=== PATIENT | female | born 1995 | race Caucasian/White ===

== ENCOUNTER → 2024-01-24 10:03 | Outpatient (CLI) | payer OTHER, SELFPAY ==
[2024-01-24 16:24] LABS: Urine N gonorrhoeae NOT DETECTED
[2024-01-24 16:43] LABS: Urine Chlamydia NOT DETECTED
== END ==
PROVIDERS: PCP Physician Assistant Medical; Visit Provider Student in an Organized Health Care Education/Training Program
DX: Z34.80 Encounter for supervision of other normal pregnancy, unspecified trimester (principal)
CPT/HCPCS: 87491; 87591

== ENCOUNTER → 2024-02-27 11:53 | Outpatient (CLI) | payer OTHER, SELFPAY ==
[2024-02-27 13:00] LABS: Add Manual Diff / Slide Review NO; Basophils Absolute Auto 100 /uL (0-100); Basophils Percent Auto 0.7 % (0-2); Eosinophils Absolute Auto 300 /uL (0-450); Eosinophils Percent Auto 2.8 % (2-4); Hematocrit 40.1 % (36-46); Hemoglobin 13.8 g/dL (12.0-16.0); Lymphocytes Absolute Auto 2200 /uL (1100-4500); Mean Corpuscular HGB Conc 34.5 % (30-36); Mean Corpuscular Hemoglobin 29.9 PG (26-34); Mean Corpuscular Volume 86.7 fL (80-100); Monocytes Absolute Auto 800 /uL (0-900); Monocytes Percent Auto 7.4 % (3-14); Neutrophils Absolute Auto 7500 /uL (1500-7000); Neutrophils Percent Auto 69.1 % (50-75); Platelet Count 289 X10^3/uL (150-400); Red Blood Cell Count 4.62 X10^6/uL (4.0-5.2); White Blood Cell Count 10.9 X10^3/uL (4.5-11.0)
[2024-02-27 13:26] LABS: Alanine Aminotransferase 13 IU/L (<35); Aspartate Aminotransferase 19 IU/L (14-36); BUN Creatinine Ratio 9.5 (6-22); Blood Urea Nitrogen 7 mg/dL (7-17); Estimated Glomerular Filt Rate > 60 mL/min (>60); Uric Acid 3.8 mg/dL (2.5-6.2)
[2024-02-27 13:36] LABS: Natera Collection Specimen Collected
[2024-02-27 15:53] LABS: Hepatitis B Surface Antigen NEGATIVE s/c (NEGATIVE); Rubella Antibody IgG 12.2 IU/mL (>15)
[2024-02-27 16:06] LABS: HIV 1 & 2 Ab/Ag 4th Gen Combo NEGATIVE (NEGATIVE); Hep C Virus Ab w/Reflex Quant NEGATIVE s/c (NEGATIVE)
[2024-02-28 06:15] LABS: RPR Screen Non Reactive (Non Reactive)
[2024-02-28 12:14] LABS: Varicella IgG Antibody Reactive (Non Reactive)
== END ==
LOC: LAB 11:55
PROVIDERS: PCP Physician Assistant Medical; Referring Provider Student in an Organized Health Care Education/Training Program; Visit Provider Student in an Organized Health Care Education/Training Program
DX: Z34.91 Encounter for supervision of normal pregnancy, unspecified, first trimester (principal); Z87.59 Personal history of other complications of pregnancy, childbirth and the puerperium; Z3A.10 10 weeks gestation of pregnancy
CPT/HCPCS: 36415; 80055; 82565; 84450; 84460; 84520; 84550; 86787; 86803; 86850; 86900; 86901; 87086; 87389

== ENCOUNTER → 2024-05-04 07:34 | Outpatient (CLI) | payer OTHER, SELFPAY ==
--- NOTE | 2024-05-04 07:35 | DI.US.S_ITS ---
PROCEDURE: US OB >= 14 WEEKS FETUS INDICATIONS: anatomy scan OUTSIDE/PRIOR DATING DATA: Last menstrual period (LMP): 12/03/2023 LMP-based estimated date of delivery (LUCIA): 09/08/2024 First dating scan (date and location): 01/24/2024 Estimated date of delivery (LUCIA) from first dating scan: 09/16/2024 The calculations are made using the working LUCIA of 09/16/2024 TECHNIQUE: Real-time scanning was performed of the fetus, with image documentation and biometric measurements. Endovaginal scanning: Not performed COMPARISON: [facility], , OB >= 14 WEEKS FETUS, 02/21/2024, 9:17. FINDINGS: General: A single living intrauterine gestation is present. Presentation: Variable Placenta: Placental position is posterior, without previa. Amniotic fluid index: 16.8 cm, normal range is 5-24 cm. Single deepest vertical pocket is 5.2 cm. heart rate: 149 beats per minute. Maternal cervical canal: Closed and measures 5.3 cm long. Normal lower limit is 2.5 cm. biometrics: Biparietal diameter: 5.0 cm, 21 weeks, 1 day Head circumference: 18.5 cm, 20 weeks, 6 days. Abdominal circumference: 17.6 cm, 22 weeks, 4 days. Femur length: 3.8 cm, 22 weeks, 0 day. Clinically estimated gestational age: 20 weeks, 5 days. Composite gestational age from present scan: 21 weeks, 5 days. Estimated weight and percentile: 476 grams, 98 percent. Anatomic survey: Neuro: Ventricles are non-dilated at less than 10 mm. Cisterna magna is normal at 3-11 mm. Cerebellum is normal in size and morphology. Nuchal skin fold: Normal at less than 6 mm between 14-21 weeks gestational age. Face: Nose and lips, facial profile are normal. Spine: No evidence for spina bifida. Heart: 4-chambered heart is present, with normal ventricular outflow tracts. Diaphragm: Diaphragm is intact. Stomach: Left-sided stomach is present. Kidneys: No hydronephrosis. Normal is less than 5 mm in 2nd trimester, less than 7 mm in 3rd trimester. Cord: 3-vessel cord is seen. Placental cord insertion is not well visualized. Bladder: Normal in size. Extremities: All 4 extremities identified. IMPRESSION: 1. Single live intrauterine gestation with fetus in variable presentation. heart rate is 149 beats per minute. Normal DANA at 16.8 cm. Cervix is closed and measures 5.3 cm in length. 2. Estimated weight is at 98 percent. 3. Placental cord insertion is not well visualized due to position. Rest of the anatomic survey is normal. We strive to produce accurate, complete, and clear reports of imaging services. To assist us in improving patient care, this report was composed using standard report templates and voice recognition software. Therefore, it may contain abnormal punctuation, insertions and/or omissions. Occasional wrong-word or sound-alike substitutions may occur. Though we review the report and make efforts to correct it, we do recommend that the report be read carefully in proper context to recognize any text inaccuracies. Dictated by: Luis Schmidt M.D. on 05/04/2024 at 12:21 Approved by: Luis Schmidt M.D. on 05/04/2024 at 12:24
== END ==
PROVIDERS: PCP Physician Assistant Medical; Referring Provider Student in an Organized Health Care Education/Training Program; Visit Provider Student in an Organized Health Care Education/Training Program
DX: Z34.82 Encounter for supervision of other normal pregnancy, second trimester (principal); Z3A.21 21 weeks gestation of pregnancy
CPT/HCPCS: 76811

== ENCOUNTER 2024-05-04 13:18 | Emergency (ER) | payer OTHER, SELFPAY ==
[2024-05-04] VITALS (7 sets, daily range): BP systolic 110–138; BP diastolic 55–67; PULSE 79–96; RESP 15–18; TEMP 37; O2SAT 97–98; BMI 34.2
--- NOTE | 2024-05-04 15:37 | ED_ITS ---
HPI - Back Pain/Injury General Chief Complaint: Back Pain/Injury Stated Complaint: 22 weeks preg; poss kidney inf Time Seen by Provider: 05/04/24 13:41 Source: patient Mode of arrival: Ambulatory Limitations: no limitations History of Present Illness HPI Narrative: Patient was a 29-year-old female. Twenty-two weeks with left-sided flank pain. States the symptoms have been present for at least a month. She has talked with her primary OB provider. She stated that his symptoms are consistent with a prior history of a kidney stone. When she talked with her primary Ob they put her on a medication. She is unsure as to what medication they put her on. She stated that she thought it was for a ?kidney infection? she was not having any vaginal bleeding. No urinary symptoms. No dysuria. No hematuria. No frequency. She states the symptoms have been persistent over the past month. No vomiting. Related Data Home Medications Medication Instructions Recorded Confirmed cetirizine 10 mg tablet (All Day 10 mg PO DAILY PRN 01/05/24 04/17/24 Allergy (cetirizine)) ferrous gluconate 324 mg (38 mg 324 mg PO DAILY 01/05/24 04/17/24 iron) tablet folic acid 400 mcg tablet 0.4 mg PO DAILY 01/05/24 04/17/24 omega 5-whc-cit-fish oil 1,000 mg 1 cap PO DAILY 01/05/24 04/17/24 (120 mg-180 mg) capsule (Fish Oil) Previous Rx's Medication Instructions Recorded ondansetron 4 mg disintegrating 4 mg PO Q8H PRN nausea and 01/24/24 tablet vomiting #10 tabs Allergies Allergy/AdvReac Type Severity Reaction Status Date / Time hydromorphone Allergy Severe Anaphylaxis Verified 04/17/24 14:05 apple Allergy Intermediate ITCHING Verified 04/17/24 14:05 banana Allergy Intermediate ITCHING Verified 04/17/24 14:05 grape Allergy Intermediate ITCHING Verified 04/17/24 14:05 biotin AdvReac Intermediate Verified 04/17/24 14:05 cyanocobalamin (vitamin B12) AdvReac Intermediate Cystic Acne Verified 04/17/24 14:05 berries Allergy Intermediate ITCHING Uncoded 04/17/24 14:05 Review of Systems Review of Systems ROS Unobtainable: All systems reviewed & are unremarkable except as noted in HPI and below Patient History Medical History Uterine scar from previous delivery affecting Wears glasses Acne (~2005) Asthma (~2005) Allergies (~1999) PTSD (post-traumatic stress disorder) (~2020) Depression (~2020) Anxiety (~2021) ADHD (~2021) Fractures (~2011) Foot pain (~2015) Chicken pox (~1997) Vertigo (~2009) Painful menstrual periods (~2006) Ovarian cyst (~2017) Kidney stones (~08/16/11) Colon polyps (~07/29/17) Exercise-induced asthma GERD (gastroesophageal reflux disease) Cystic acne History of induced hypertension Normal colonoscopy Surgical History (Updated 03/10/24 @ 21:17 by Stacy Marcial) Anesthesia History of endoscopy (~05/17/22) H/O nephrolithotomy with removal of calculi (~06/28/13) History of gastroscopy [place] teeth extracted (~2009) Hx of foot surgery (~02/05/16) H/O left knee surgery (~2011) H/O section (~05/16/19) Family History (Updated 03/10/24 @ 21:18 by Stacy Marcial) Grandmother Breast cancer Hypertension Migraine Asthma Family/Other Breast cancer Ovarian cancer Mother Asthma Migraine Brother Depression Anxiety Substance abuse Father Melanoma Grandmother Diabetes mellitus Hypertension Grandfather Heart attack Social History marital status: number of children: 1 household members: spouse and children lives independently: Yes caregiver/support person: Yes housing: house pets and animals: Yes (dog) education level: college (some college) 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[employer]) current occupational exposures/hazards: Yes (occasionally stumbles across contaminated soils) special anay needs: No travel history: recent (domestic only) seatbelt use: always water heater temp set < 120 deg: Yes working smoke detector in home: Yes fire extinguisher in home: Yes carbon monox detector in home: Yes firearms in home: Yes firearms unloaded and locked: Yes do you feel safe at home: Yes Smoking Status: Never smoker second hand exposure: No alcohol intake: former (~1 glass wine/week when not ) substance use type: does not use during the past year weight has: remained stable well-balanced diet: about half the time daily servings fruits/ve-4 caffeine: No Type(s) of exercise: aerobic and other (football) Smoking Status: Never smoker Exam Initial Vital Signs Initial Vital Signs: Vital Signs Temperature 98.6 F 05/04/24 13:20 Pulse Rate 96 H 05/04/24 13:20 Respiratory Rate 18 05/04/24 13:20 Blood Pressure 138/67 05/04/24 13:20 Pulse Oximetry 97 05/04/24 13:20 Oxygen Delivery Method Room Air 05/04/24 13:20 Resp Effort & Inspection: normal respiratory effort Cardio Rate: regular rate GI Other: Gravid abdomen Neuro General: patient alert, patient awake and moves all extremities Extrem General: normal to inspection Course Orders Ordered: ED Orders 05/04/24 15:37 US renal complete Stat 05/04/24 16:21 Basic Metabolic Panel Stat Complete Blood Count AUTO DIFF Stat Vital Signs Vital signs: Vital Signs - 8 hr 05/04/24 13:20 05/04/24 15:22 05/04/24 15:30 Temperature 98.6 F Pulse Rate 96 H 86 80 Respiratory Rate 18 Blood Pressure 138/67 Pulse Oximetry 97 98 98 Oxygen Delivery Method Room Air 05/04/24 15:30 05/04/24 16:00 05/04/24 16:00 Temperature Pulse Rate 91 H Respiratory Rate Blood Pressure 114/55 L 110/62 Pulse Oximetry 98 Oxygen Delivery Method 05/04/24 16:30 Temperature Pulse Rate 83 Respiratory Rate Blood Pressure Pulse Oximetry 98 Oxygen Delivery Method MDM - Back Pain/Injury Lab Data Attestation: I reviewed the patient's lab results. 05/04/24 16:21 05/04/24 16:21 Labs: Lab Results 05/04/24 Range/Units 16:21 WBC 13.0 H (4.5-11.0) X10^3/uL RBC 4.28 (4.0-5.2) X10^6/uL Hgb 12.7 (12.0-16.0) g/dL Hct 37.8 (36-46) % MCV 88.5 (80-100) fL MCH 29.8 (26-34) PG MCHC 33.6 (30-36) % RDW 14.0 (11.6-14.8) % Plt Count 338 (150-400) X10^3/uL Neut % (Auto) 73.2 (50-75) % Lymph % (Auto) 16.8 L (25-40) % [place] % (Auto) 7.1 (3-14) % Eos % (Auto) 2.3 (2-4) % Baso % (Auto) 0.6 (0-2) % Neut # (Auto) 9500 H (8731-8282) /uL Lymph # (Auto) 2200 (2783-7837) /uL [place] # (Auto) 900 (0-900) /uL Eos # (Auto) 300 (0-450) /uL Baso # (Auto) 100 (0-100) /uL Sodium 136 L (137-145) mmol/L Potassium 3.8 (3.4-5.1) mmol/L Chloride 109 H (98-107) mmol/L Carbon Dioxide 19 L (22-32) mmol/L BUN 9 (7-17) mg/dL Creatinine 0.69 (0.52-1.04) mg/dL Estimated GFR > 60 (>60) mL/min BUN/Creatinine Ratio 13.0 (6-22) Glucose 90 (70-100) mg/dL Calcium 9.0 (8.4-10.2) mg/dL Urine Dip Bedside Urine Glucose Negative Bedside Urine Bilirubin - Negative Bedside Urine Ketone - Negative Urine Specific [employer] 1.015 Bedside Urine Occult Blood - Negative Bedside Urine pH 6.5 Bedside Urine Protein - Negative Bedside Urine Urobilinogen - Negative Bedside Urine Nitrite - Negative Bedside Urine Leukocytes - Negative Esterase Imaging Data Renal ultrasound: Radiologist's Impression: PROCEDURE: US RENAL COMPLETE INDICATIONS: L flank pain eval for hydro TECHNIQUE: Real-time scanning was performed of the kidneys and bladder, with image documentation. COMPARISON: None. FINDINGS: Kidneys: Kidneys are normal in size. Right kidney measures 9.4 cm long; left kidney measures 10.6 cm long. Right renal cortical thickness is 1.7 cm; left renal cortical thickness is 1.9 cm. Renal cortical echotexture is normal. No hydronephrosis or nephrolithiasis. No suspicious solid mass lesions. Bladder: Pre-void bladder volume is 20 mL. Post-void residual is 0 mL. Pre- void images demonstrate no intraluminal masses or stones. On pre-void images, both ureteral jets are noted with color Doppler interrogation. (Of note, ureteral jets may not be detectable in up to 25% of cases due to insufficient differences in specific gravity between ureteral and bladder urine). Miscellaneous: No free pelvic fluid. Gravid uterus partially visualized. IMPRESSION: Normal sonographic appearance of the kidneys and bladder. No hydronephrosis. MDM Narrative Medical decision making narrative: Urinalysis today is not consistent with a UTI. Ultrasound does not show any signs of hydro and her creatinine is unremarkable. I do feel that we should hold on any advanced imaging for now because she was . Recommended that she talk with her can intake worker to discuss the indications for referral to see Urology. We discussed the use of Tylenol. She was given return precautions. She expressed understanding and agreement. Discharge Plan Departure Patient Disposition: Home Clinical Impression: Flank pain Instructions: DI for Flank Pain Activity Restrictions/Additional Instructions: Recommend that you continue to take all of your medications as directed. I do recommend that you talk with your primary can intake worker to discuss the indications for referral to see Urology. Return to the emergency department for fevers or any other worsening symptoms. Prescriptions: No Action ondansetron 4 mg tablet,disintegrating 4 mg PO Q8H PRN (Reason: nausea and vomiting) Qty: 10 1RF omega 7-tkm-vft-fish oil [Fish Oil] 1,000 mg (120 mg-180 mg) capsule 1 cap PO DAILY folic acid 400 mcg tablet 0.4 mg PO DAILY ferrous gluconate 324 mg (38 mg iron) tablet 324 mg PO DAILY cetirizine [All Day Allergy (cetirizine)] 10 mg tablet 10 mg PO DAILY PRN Referrals: Idania West PA-C [Primary Care Provider] - Stand Alone Forms: Patient Portal/API/Survey
[2024-05-04 16:29] LABS: Add Manual Diff / Slide Review NO; Basophils Absolute Auto 100 /uL (0-100); Basophils Percent Auto 0.6 % (0-2); Eosinophils Absolute Auto 300 /uL (0-450); Eosinophils Percent Auto 2.3 % (2-4); Hematocrit 37.8 % (36-46); Hemoglobin 12.7 g/dL (12.0-16.0); Lymphocytes Absolute Auto 2200 /uL (1100-4500); Lymphocytes Percent Auto 16.8 % (25-40); Mean Corpuscular HGB Conc 33.6 % (30-36); Mean Corpuscular Hemoglobin 29.8 PG (26-34); Mean Corpuscular Volume 88.5 fL (80-100); Monocytes Absolute Auto 900 /uL (0-900); Monocytes Percent Auto 7.1 % (3-14); Neutrophils Absolute Auto 9500 /uL (1500-7000); Neutrophils Percent Auto 73.2 % (50-75); Platelet Count 338 X10^3/uL (150-400); Red Blood Cell Count 4.28 X10^6/uL (4.0-5.2)
[2024-05-04 16:39] LABS: Blood Urea Nitrogen 9 mg/dL (7-17); Carbon Dioxide 19 mmol/L (22-32); Chloride 109 mmol/L (98-107); Estimated Glomerular Filt Rate > 60 mL/min (>60); Glucose 90 mg/dL (70-100); HEMOLYSIS < 15 (0-50); Potassium 3.8 mmol/L (3.4-5.1); Sodium 136 mmol/L (137-145)
== END 2024-05-04 17:14 | disposition home or self-care (01) ==
PROVIDERS: Emergency Provider Emergency Medicine; PCP Physician Assistant Medical
DX: O26.892 Other specified pregnancy related conditions, second trimester (principal); R10.9 Unspecified abdominal pain; Z3A.22 22 weeks gestation of pregnancy
CPT/HCPCS: 76770; 80048; 81003; 85025; 99282; 99284

== ENCOUNTER 2024-05-19 17:22 | Observation (INO) | payer OTHER, SELFPAY ==
[2024-05-19 17:52] LABS: Appearance Urine UA CLEAR; Bilirubin Urine UA NEGATIVE (NEGATIVE); Color Urine UA YELLOW; Glucose Urine UA NEGATIVE (Negative); Ketones Urine UA NEGATIVE (NEGATIVE); Leukocyte Esterase Urine UA NEGATIVE (NEGATIVE); Nitrite Urine UA NEGATIVE (Negative); Occult Blood Urine UA 2+ (Negative); Protein Urine UA NEGATIVE (Negative); Urobilinogen Urine UA 0.2 E.U./dL (0.2)
[2024-05-19 18:11] LABS: Bacteria Urine Few (2-10); RBC Urine 5-10/HPF (0-5/HPF); Urine Volume 10mL (spun); WBC Urine 0-1/HPF (0-5/HPF)
[2024-05-19 18:12] LABS: Culture Indicated Urine Cult Not Indicated; Squamous Epithelial Cell Urine 1-5 /HPF (0-5/HPF)
--- NOTE | 2024-05-19 18:23 | PM.OBTRLD ---
Visit Information Visit Information Date of evaluation: 05/19/24 Primary OB Provider: Hanna Gil On-call OB Provider: Elva Jaime Reason for Evaluation: Yes pre-term labor Comments/Additional reasons for admission: 29-year-old 3 para 1 EDC 09/16/2024 at 22 weeks 6 days here for evaluation for pelvic cramping. Patient had a bad fall 3 days ago. She hit her abdomen falling against rocks and a retaining wall. She was admitted to [facility] for 7 hours and monitored. She had a CT scan because they were concerned she had intra-abdominal bleeding but was negative. She had no vaginal bleeding. She has been at rest and pushing fluids since. Patient began having menstrual like cramps in her lower abdomen all day. No leakage of fluid. No vaginal bleeding. Good movement. Patient came in for evaluation. [facility] Medical History Uterine scar from previous delivery affecting Wears glasses Acne (~2005) Asthma (~2005) Allergies (~1999) PTSD (post-traumatic stress disorder) (~2020) Depression (~2020) Anxiety (~2021) ADHD (~2021) Fractures (~2011) Foot pain (~2015) Chicken pox (~1997) Vertigo (~2009) Painful menstrual periods (~2006) Ovarian cyst (~2017) Kidney stones (~08/16/11) Colon polyps (~07/29/17) Exercise-induced asthma GERD (gastroesophageal reflux disease) Cystic acne History of induced hypertension Normal colonoscopy Surgical History (Updated 03/10/24 @ 21:17 by Stacy Marcial) Anesthesia History of endoscopy (~05/17/22) H/O nephrolithotomy with removal of calculi (~06/28/13) History of gastroscopy [place] teeth extracted (~2009) Hx of foot surgery (~02/05/16) H/O left knee surgery (~2011) H/O section (~05/16/19) Family History (Updated 03/10/24 @ 21:18 by Stacy Marcial) Grandmother Breast cancer Hypertension Migraine Asthma Family/Other Breast cancer Ovarian cancer Mother Asthma Migraine Brother Depression Anxiety Substance abuse Father Melanoma Grandmother Diabetes mellitus Hypertension Grandfather Heart attack Social History marital status: number of children: 1 household members: spouse and children lives independently: Yes caregiver/support person: Yes housing: house pets and animals: Yes (dog) education level: college (some college) 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 occupational exposures/hazards: Yes (occasionally stumbles across contaminated soils) special anay needs: No travel history: recent (domestic only) seatbelt use: always water heater temp set < 120 deg: Yes working smoke detector in home: Yes fire extinguisher in home: Yes carbon monox detector in home: Yes firearms in home: Yes firearms unloaded and locked: Yes do you feel safe at home: Yes Smoking Status: Never smoker second hand exposure: No alcohol intake: former (~1 glass wine/week when not ) substance use type: does not use during the past year weight has: remained stable well-balanced diet: about half the time daily servings fruits/ve-4 caffeine: No Type(s) of exercise: aerobic and other (football) Review of Systems Review of Systems Narrative: No headaches. No fevers. No UTI symptoms. Exam Vital Signs (past 8 hours): Blood pressure 127/73, pulse of 82, temperature 97.6? Narrative Exam Narrative: Patient has significant bruising on her right lower quadrant of her abdomen. She has some tenderness to her uterus. Speculum exam does not reveal any blood. Cervical exam does not reveal any cervical changes. Objective Labs Labs: Laboratory Results - last 24 hr 05/19/24 17:40 Urine Color Yellow Urine Appearance Clear Urine pH 6.0 Ur Specific [place] 1.020 Urine Protein Negative Urine Glucose (UA) Negative Urine Ketones Negative Urine Occult Blood 2+ H Urine Nitrate Negative Urine Bilirubin Negative Urine Urobilinogen 0.2 Ur Leukocyte Esterase Negative Urine RBC 5-10/hpf H Urine WBC 0-1/hpf Ur Squamous Epith Cells 1-5 /hpf Urine Bacteria Few (2-10) H Ur Culture Indicated? Cult not indicated Vol Urine Centrifuged 10ml (spun) Evaluation Evaluation Baseline heart rate: 140 Contraction Frequency (minutes): 0 Category of Tracing: Appropriate for gestational age Cervical dilation (cm): 0 Cervical effacement (%): 0 station: -4 Diagnosis, Plan/Disposition Final Diagnosis (1) 22 weeks gestation of : Status: Acute (2) Pelvic cramping in antepartum period: Status: Acute Plan/Disposition Plan: 22 week gestation status post fall 3 days ago with pelvic cramping. No obvious labor or abruption. Patient is to continue to rest, push fluids, return for any vaginal bleeding or increased pain. Patient has a follow-up appointment with primary OB provider in 2 days. OB Disposition: home
[2024-05-19] MEDS: INDOMETHACIN 25 MG CAPSULE 50 MG PO (18:25)
== END 2024-05-19 20:16 | disposition home or self-care (01) ==
LOC: LABOR 17:23
PROVIDERS: Admitting Provider Specialist; PCP Physician Assistant Medical; Referring Provider Specialist; Visit Provider Specialist
DX: O26.892 Other specified pregnancy related conditions, second trimester (principal); R10.2 Pelvic and perineal pain; Z3A.22 22 weeks gestation of pregnancy
CPT/HCPCS: 59025; 59050; 81001; G0378; G0379

== ENCOUNTER 2024-05-21 13:54 | Emergency (ER) | payer OTHER, SELFPAY ==
[2024-05-21] VITALS (9 sets, daily range): BP systolic 114–140; BP diastolic 62–99; PULSE 59–88; RESP 18–22; TEMP 36; O2SAT 97–100; BMI 36.1
[2024-05-21 14:32] LABS: Add Manual Diff / Slide Review NO; Basophils Absolute Auto 200 /uL (0-100); Basophils Percent Auto 1.3 % (0-2); Eosinophils Absolute Auto 100 /uL (0-450); Eosinophils Percent Auto 0.8 % (2-4); Hematocrit 38.1 % (36-46); Hemoglobin 12.8 g/dL (12.0-16.0); Lymphocytes Absolute Auto 1500 /uL (1100-4500); Lymphocytes Percent Auto 10.6 % (25-40); Mean Corpuscular HGB Conc 33.6 % (30-36); Mean Corpuscular Hemoglobin 30.2 PG (26-34); Mean Corpuscular Volume 89.9 fL (80-100); Monocytes Absolute Auto 500 /uL (0-900); Monocytes Percent Auto 3.7 % (3-14); Neutrophils Absolute Auto 12000 /uL (1500-7000); Neutrophils Percent Auto 83.6 % (50-75); Platelet Count 286 X10^3/uL (150-400); Red Blood Cell Count 4.24 X10^6/uL (4.0-5.2); White Blood Cell Count 14.3 X10^3/uL (4.5-11.0)
[2024-05-21] MEDS: ONDANSETRON 4 MG/2 ML INJ IV (14:40)
[2024-05-21] MEDS: ACETAMINOPHEN IV 1,000 MG/100 ML VIAL 400 MG IV (14:44)
[2024-05-21] MEDS: SODIUM CHLORIDE 0.9% 1,000 ML 1000 ML IV (14:47)
[2024-05-21 14:52] LABS: Alanine Aminotransferase 16 IU/L (<35); Albumin 3.9 g/dL (3.5-5.0); Albumin Globulin Ratio 1.1 (1.0-2.8); Alkaline Phosphatase 88 U/L (38-126); Aspartate Aminotransferase 21 IU/L (14-36); BUN Creatinine Ratio 10.3 (6-22); Bilirubin Total 0.3 mg/dL (0.2-1.3); Blood Urea Nitrogen 9 mg/dL (7-17); Calcium 9.5 mg/dL (8.4-10.2); Carbon Dioxide 19 mmol/L (22-32); Chloride 108 mmol/L (98-107); Estimated Glomerular Filt Rate > 60 mL/min (>60); Globulin 3.7 g/dL (1.7-4.1); Glucose 99 mg/dL (70-100); HEMOLYSIS < 15 (0-50); Potassium 3.9 mmol/L (3.4-5.1); Sodium 136 mmol/L (137-145); Total Protein 7.6 g/dL (6.3-8.2)
--- NOTE | 2024-05-21 14:53 | PC.NURSE ---
Pt has history of kidney stones and reports her pain today is very similar to past stones. She first had kidney stones in high school and she did see urology but not recently. Pt C/O 04/10 right flank pain with N/V since 0700 today.
--- NOTE | 2024-05-21 16:15 | PC.NURSE ---
Pt requesting more pain medication after having IV tylenol. She reports allergy to hydromorphone. I asked what her allergy was and patient states anaphylaxis. I asked pt if she has had morphine before to which pt responds yes, with no issues. I asked pt if she had been intubated after receiving hydromorphone and pt states No. They gave it to me when I had knee surgery and when I woke up the nurses told me to let my doctors know I had an allergy to dilaudid. They told me I stopped breathing and they had difficulty waking me up. Pt denied swollen tongue or throat at that time. I informed Dr. Santiago who okayed giving pt morphine (see MAR).
[2024-05-21] MEDS: MORPHINE 4 MG/ML INJ IV (17:21)
--- NOTE | 2024-05-21 17:47 | ED.NAVMDI ---
HPI - Nausea/Vomiting/Diarrhea General Chief complaint: Nausea/Vomiting/Diarrhea Stated complaint: 23wk Preg, Vomiting, R Kidney/Flank Px Time Seen by Provider: 05/21/24 14:18 Source: patient Mode of arrival: Ambulatory History of Present Illness HPI Narrative: Patient is a 29old female now at 23 weeks presenting today with pretty significant right-sided flank pain. She reports the pain is quite severe she gets nauseous sometimes radiating to the front. Denies any vaginal bleeding. She actually fell about 1 week ago. She hit her abdomen falling against rocks against a retaining wall. She went to [facility] where she was monitored for [address] had a [address] with contrast at that time which did not show any sort of traumatic injury but does show right-sided 2 mm kidney stone. She had some abdominal cramping but no vaginal bleeding ultimately she was discharged home. She then started having some cramping she was evaluated by OB here on May 19 she was evaluated by Ob discharged home. Now she was having this worsening right-sided flank pain pain is unbearable and uncontrollable. At my time of evaluation he has been received morphine and Tylenol in his overall much better Related Data Home Medications Medication Instructions Recorded Confirmed cetirizine 10 mg tablet (All Day 10 mg PO DAILY PRN 01/05/24 05/15/24 Allergy (cetirizine)) ferrous gluconate 324 mg (38 mg 324 mg PO DAILY 01/05/24 05/15/24 iron) tablet folic acid 400 mcg tablet 0.4 mg PO DAILY 01/05/24 05/15/24 omega 2-xjk-enf-fish oil 1,000 mg 1 cap PO DAILY 01/05/24 05/15/24 (120 mg-180 mg) capsule (Fish Oil) Previous Rx's Medication Instructions Recorded ondansetron 4 mg disintegrating 4 mg PO Q8H PRN nausea and 01/24/24 tablet vomiting #10 tabs tamsulosin 0.4 mg capsule 0.4 mg PO DAILY 7 days #7 caps 05/15/24 cephalexin 500 mg capsule 500 mg PO BID 7 days #14 caps 05/21/24 hydrocodone 5 mg-acetaminophen 325 1 tab PO Q6H PRN pain #14 tabs 05/21/24 mg tablet ondansetron 4 mg disintegrating 4 mg PO Q8H PRN nausea and 05/21/24 tablet vomiting #10 tabs Allergies Allergy/AdvReac Type Severity Reaction Status Date / Time hydromorphone Allergy Severe Anaphylaxis Verified 05/15/24 10:04 apple Allergy Intermediate ITCHING Verified 05/15/24 10:04 banana Allergy Intermediate ITCHING Verified 05/15/24 10:04 grape Allergy Intermediate ITCHING Verified 05/15/24 10:04 biotin AdvReac Intermediate Verified 05/15/24 10:04 cyanocobalamin (vitamin B12) AdvReac Intermediate Cystic Acne Verified 05/15/24 10:04 berries Allergy Intermediate ITCHING Uncoded 05/15/24 10:04 Patient History Medical History Uterine scar from previous delivery affecting Wears glasses Acne (~2005) Asthma (~2005) Allergies (~1999) PTSD (post-traumatic stress disorder) (~2020) Depression (~2020) Anxiety (~2021) ADHD (~2021) Fractures (~2011) Foot pain (~2015) Chicken pox (~1997) Vertigo (~2009) Painful menstrual periods (~2006) Ovarian cyst (~2017) Kidney stones (~08/16/11) Colon polyps (~07/29/17) Exercise-induced asthma GERD (gastroesophageal reflux disease) Cystic acne History of induced hypertension Normal colonoscopy Surgical History Anesthesia History of endoscopy (~05/17/22) H/O nephrolithotomy with removal of calculi (~06/28/13) History of gastroscopy [place] teeth extracted (~2009) Hx of foot surgery (~02/05/16) H/O left knee surgery (~2011) H/O section (~05/16/19) Family History Grandmother Breast cancer Hypertension Migraine Asthma Family/Other Breast cancer Ovarian cancer Mother Asthma Migraine Brother Depression Anxiety Substance abuse Father Melanoma Grandmother Diabetes mellitus Hypertension Grandfather Heart attack Social History marital status: number of children: 1 household members: spouse and children lives independently: Yes caregiver/support person: Yes housing: house pets and animals: Yes (dog) education level: college (some college) 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) current occupational exposures/hazards: Yes (occasionally stumbles across contaminated soils) special anay needs: No travel history: recent (domestic only) seatbelt use: always water heater temp set < 120 deg: Yes working smoke detector in home: Yes fire extinguisher in home: Yes carbon monox detector in home: Yes firearms in home: Yes firearms unloaded and locked: Yes do you feel safe at home: Yes Smoking Status: Never smoker second hand exposure: No alcohol intake: former (~1 glass wine/week when not ) substance use type: does not use during the past year weight has: remained stable well-balanced diet: about half the time daily servings fruits/ve-4 caffeine: No Type(s) of exercise: aerobic and other (football) Smoking Status: Never smoker Exam Initial Vital Signs Initial Vital Signs: Vital Signs Temperature 96.8 F L 05/21/24 14:03 Pulse Rate 84 05/21/24 14:03 Respiratory Rate 22 05/21/24 14:03 Blood Pressure 140/99 H 05/21/24 14:03 Pulse Oximetry 100 05/21/24 14:03 Oxygen Delivery Method Room Air 05/21/24 14:03 GENERAL: Alert well-appearing 29-year-old female and in no acute distress. HEENT: Head atraumatic,EOMI, pupils reactive, face symmetric, moist mucous membranes CARDIOVASCULAR: Regular rate and rhythm without murmurs, rubs or gallops. RESPIRATORY: Breath sounds equal bilaterally, no wheezes rales or rhonchi. ABDOMEN: Soft, gravid nontender no guarding : Minimal CVA tenderness EXTREMITIES: Normal range of motion, no clubbing or edema. Neurovascularly intact NEUROLOGICAL: Alert and oriented x4.Normal gait and speech. Cranial nerves II through XII grossly intact. SKIN: Warm, dry, no laceration, no petechiae, no rashes or lesions. Course Orders Ordered: ED Orders 05/21/24 14:20 CBC Auto Diff [Complete Blood Count AUTO DIFF] Stat CMP [Comprehensive Metabolic Panel] Stat Discontinued Medications Hydrocodone Bitart/Acetaminophen (Hydrocodone/Acet 5/325 Prepack) 1 bottle MISC DIRECTED ONE Stop: 05/21/24 18:14 Last Admin: 05/21/24 18:56 Dose: 1 bottle Documented By: KATIE Cefazolin Sodium (Cephalexin 250 Mg Cap Prepack) 1 bottle MISC DIRECTED ONE Stop: 05/21/24 18:18 Last Admin: 05/21/24 18:55 Dose: 1 pack Documented By: KATIE Sodium Chloride (Normal Saline 0.9%) 1,000 mls @ 1,000 mls/hr IV BOLUS ONE Stop: 05/21/24 15:17 Last Infusion: 05/21/24 16:00 Dose: Infused Documented By: Admin: 05/21/24 14:47 Dose: 1,000 mls/hr Documented By: KATIE Acetaminophen (Ofirmev) 1,000 mg in 100 mls @ 400 mls/hr IV NOW ONE Stop: 05/21/24 14:55 Last Infusion: 05/21/24 15:02 Dose: Infused Documented By: Admin: 05/21/24 14:44 Dose: 400 mls/hr Documented By: KATIE Morphine Sulfate (Morphine 4 Mg/Ml Inj) 4 mg IV NOW ONE Stop: 05/21/24 16:50 Last Admin: 05/21/24 17:21 Dose: 4 mg Documented By: KATIE Ondansetron HCl (Ondansetron 4 Mg/2 Ml Inj) 4 mg IV NOW ONE Stop: 05/21/24 14:19 Last Admin: 05/21/24 14:40 Dose: 4 mg Documented By: KATIE Ondansetron HCl (Ondansetron 4 Mg Odt Prepack) 1 bottle MISC Q4H PRN PRN Reason: Nausea And Vomiting Last Admin: 05/21/24 18:55 Dose: 1 bottle Documented By: KATIE Vital Signs Vital signs: Vital Signs - 8 hr 05/21/24 14:03 05/21/24 14:35 05/21/24 14:37 Temperature 96.8 F L Pulse Rate 84 60 68 Respiratory Rate 22 22 Blood Pressure 140/99 H 121/82 Pulse Oximetry 100 100 100 Oxygen Delivery Method Room Air Room Air 05/21/24 14:38 05/21/24 14:38 05/21/24 15:00 Temperature Pulse Rate 67 Respiratory Rate Blood Pressure 121/82 118/64 Pulse Oximetry 100 Oxygen Delivery Method Room Air 05/21/24 15:00 05/21/24 16:30 05/21/24 17:30 Temperature Pulse Rate 59 L 86 82 Respiratory Rate 20 18 Blood Pressure 117/62 114/70 Pulse Oximetry 97 99 98 Oxygen Delivery Method Room Air Room Air Room Air 05/21/24 17:45 05/21/24 18:57 Temperature Pulse Rate 81 88 Respiratory Rate 18 Blood Pressure 115/64 Pulse Oximetry 98 97 Oxygen Delivery Method Room Air Room Air MDM - Nausea/Vomiting/Diarrhea Lab Data 05/21/24 14:20 05/21/24 14:20 Labs: Lab Results 05/21/24 Range/Units 14:20 WBC 14.3 H (4.5-11.0) X10^3/uL RBC 4.24 (4.0-5.2) X10^6/uL Hgb 12.8 (12.0-16.0) g/dL Hct 38.1 (36-46) % MCV 89.9 (80-100) fL MCH 30.2 (26-34) PG MCHC 33.6 (30-36) % RDW 14.0 (11.6-14.8) % Plt Count 286 (150-400) X10^3/uL Neut % (Auto) 83.6 H (50-75) % Lymph % (Auto) 10.6 L (25-40) % [place] % (Auto) 3.7 (3-14) % Eos % (Auto) 0.8 L (2-4) % Baso % (Auto) 1.3 (0-2) % Neut # (Auto) 61726 H (1577-1381) /uL Lymph # (Auto) 1500 (5800-9529) /uL [place] # (Auto) 500 (0-900) /uL Eos # (Auto) 100 (0-450) /uL Baso # (Auto) 200 H (0-100) /uL Sodium 136 L (137-145) mmol/L Potassium 3.9 (3.4-5.1) mmol/L Chloride 108 H (98-107) mmol/L Carbon Dioxide 19 L (22-32) mmol/L BUN 9 (7-17) mg/dL Creatinine 0.87 (0.52-1.04) mg/dL Estimated GFR > 60 (>60) mL/min BUN/Creatinine Ratio 10.3 (6-22) Glucose 99 (70-100) mg/dL Calcium 9.5 (8.4-10.2) mg/dL Total Bilirubin 0.3 (0.2-1.3) mg/dL AST 21 (14-36) IU/L ALT 16 (<35) IU/L Alkaline Phosphatase 88 (38-126) U/L Total Protein 7.6 (6.3-8.2) g/dL Albumin 3.9 (3.5-5.0) g/dL Globulin 3.7 (1.7-4.1) g/dL Albumin/Globulin Ratio 1.1 (1.0-2.8) Urine Dip Bedside Urine Glucose Negative Bedside Urine Bilirubin - Negative Bedside Urine Ketone +/- 5 Urine Specific [place] 1.020 Bedside Urine Occult Blood ++ Bedside Urine pH 6.0 Bedside Urine Protein - Negative Bedside Urine Urobilinogen - Negative Bedside Urine Nitrite - Negative Bedside Urine Leukocytes - Negative Esterase MDM Narrative Medical decision making narrative: Patient 29-year-old female presenting at 23 weeks with significant right flank pain. She had imaging [address] scans did show a right-sided kidney stone. I suspect that this is the stone and pain she was feeling. Pain comes and goes. No concern for labor or abruption. heart tones have been checked and in nursing notes. Blood work has been reviewe. She does have leukocytosis of 14 difficult to say if this is secondary versus stress. Urinalysis does show some hematuria but again no infection. Electrolytes are within normal limits Patient is feeling significantly better she has had kidney stones in the past. I reviewed her CT imaging from [place] week symptoms are consistent with kidney stone pain. At this time I do not see need for further imaging. She has not having any further abdominal cramping. At this time will give her antibiotics prevent infection with a leukocytosis. But she overall appears well nontoxic pain is much better after morphine and Tylenol. Giving her pain medication and Zofran to go home. She was strict return precautions Discharge Plan Departure Patient Disposition: Home Clinical Impression: Kidney stones Instructions: DI for Kidney Stones Activity Restrictions/Additional Instructions: *You have been diagnosed with kidney stone *What to do: Stay hydrated, hopefully pass the stone in 24-48 hours *Continue to take medications as directed--> Q[facility] in [facility] 1 tablet every 4-6 hours if needed for severe pain Zofran 4 mg every 8 hours for nausea or vomiting Keflex 500 mg twice a day for 7 days *Follow up with your primary care provider in 2-3 days or call [phone] May need to follow-up with urology *Return to ER if you should have increasing pain nausea vomiting fever or any new, worsening or concerning symptoms Prescriptions: New hydrocodone-acetaminophen 5-325 mg tablet 1 tab PO Q6H PRN (Reason: pain) Qty: 14 0RF cephalexin 500 mg capsule 500 mg PO BID 7 Days Qty: 14 0RF ondansetron 4 mg tablet,disintegrating 4 mg PO Q8H PRN (Reason: nausea and vomiting) Qty: 10 0RF No Action ondansetron 4 mg tablet,disintegrating 4 mg PO Q8H PRN (Reason: nausea and vomiting) Qty: 10 1RF omega 9-qbo-ysp-fish oil [Fish Oil] 1,000 mg (120 mg-180 mg) capsule 1 cap PO DAILY folic acid 400 mcg tablet 0.4 mg PO DAILY ferrous gluconate 324 mg (38 mg iron) tablet 324 mg PO DAILY cetirizine [All Day Allergy (cetirizine)] 10 mg tablet 10 mg PO DAILY PRN tamsulosin 0.4 mg capsule 0.4 mg PO DAILY 7 Days Qty: 7 0RF Referrals: Idania West PA-C [Primary Care Provider] - Stand Alone Forms: Patient Portal/API/Survey
[2024-05-21] MEDS: cephALEXin 250 MG CAP PREPACK 1 BOTTLE MISC (18:55)
[2024-05-21] MEDS: ONDANSETRON 4 MG ODT PREPACK 1 BOTTLE MISC (18:55)
[2024-05-21] MEDS: HYDROCODONE/ACET 5/325 PREPACK 1 BOTTLE MISC (18:56)
== END 2024-05-21 18:59 | disposition home or self-care (01) ==
PROVIDERS: Emergency Provider Emergency Medicine; PCP Physician Assistant Medical
DX: O26.892 Other specified pregnancy related conditions, second trimester (principal); N20.0 Calculus of kidney; Z3A.23 23 weeks gestation of pregnancy
CPT/HCPCS: 36415; 80053; 81003; 85025; 96361; 96365; 96375; 99284; J0131; J2270; J2405

== ENCOUNTER → 2024-06-11 09:28 | Outpatient (CLI) | payer OTHER, SELFPAY ==
[2024-06-11 11:10] LABS: Hematocrit 37.2 % (36-46); Hemoglobin 12.6 g/dL (12.0-16.0)
[2024-06-11 11:36] LABS: GTT (PREG) 1 Hour PP 50gm Dose 120 mg/dL (76-139)
== END ==
PROVIDERS: PCP Physician Assistant Medical; Referring Provider Student in an Organized Health Care Education/Training Program; Visit Provider Student in an Organized Health Care Education/Training Program
DX: Z13.0 Encounter for screening for diseases of the blood and blood-forming organs and certain disorders involving the immune mechanism (principal); Z13.1 Encounter for screening for diabetes mellitus
CPT/HCPCS: 36415; 82950; 85014; 85018

== ENCOUNTER → 2024-07-10 07:34 | Outpatient (CLI) | payer OTHER, SELFPAY ==
--- NOTE | 2024-07-10 07:35 | DI.US.S_ITS ---
PROCEDURE: US OB FOLLOW UP INDICATIONS: evaluate cord insertion; repeat growth OUTSIDE/PRIOR DATING DATA: Last menstrual period (LMP): 12/03/2023 LMP-based estimated date of delivery (LUCIA): 09/08/2024. First dating scan (date and location): 01/24/2024. Estimated date of delivery (LUCIA) from first dating scan: 09/16/2024. The calculations are made using the ultrasound LUCIA of 09/16/2024. TECHNIQUE: Real-time scanning was performed of the fetus, with image documentation. COMPARISON: [facility], US, US OB >= 14 WEEKS FETUS, 05/04/2024, 7:48. FINDINGS: A single living intrauterine gestation is present. Presentation: Vertex. Placenta: Placental position is posterior, without previa. Amniotic fluid index: 22.8 cm, normal range is 5-24 cm. Single deepest vertical pocket is 8.8 cm. heart rate: 144 beats per minute. Maternal cervical canal: 4.7 cm long. Normal lower limit is 2.5 cm. Clinically estimated gestational age: 30 weeks 2 days Estimated gestational age from initial scan: 31 weeks 0 days BPD: 7.7 cm 30 weeks 6 days HC: 28.8 cm 31 weeks 5 days AC: 27.1 cm 31 weeks 1 day FL: 6 cm 31 weeks 0 days. Estimated weight 1707 g, 68th percentile Cord insertion: Normal IMPRESSION: Single live intrauterine with ultrasound gestational age 31 weeks 0 days. Cord insertion is within normal limits. Dictated by: Merced Adler M.D. on 07/10/2024 at 13:13 Approved by: Merced Adler M.D. on 07/10/2024 at 13:17
== END ==
PROVIDERS: PCP Physician Assistant Medical; Referring Provider Student in an Organized Health Care Education/Training Program; Visit Provider Student in an Organized Health Care Education/Training Program
DX: O09.293 Supervision of pregnancy with other poor reproductive or obstetric history, third trimester (principal); O99.213 Obesity complicating pregnancy, third trimester; O34.219 Maternal care for unspecified type scar from previous cesarean delivery; Z3A.30 30 weeks gestation of pregnancy
CPT/HCPCS: 76816

== ENCOUNTER 2024-07-20 11:29 | Observation (INO) | payer OTHER, SELFPAY ==
[2024-07-20 12:49] LABS: Alanine Aminotransferase 20 IU/L (<35); Albumin 3.7 g/dL (3.5-5.0); Alkaline Phosphatase 130 U/L (38-126); Aspartate Aminotransferase 33 IU/L (14-36); BUN Creatinine Ratio 14.7 (6-22); Bilirubin Total 0.4 mg/dL (0.2-1.3); Blood Urea Nitrogen 10 mg/dL (7-17); Calcium 9.4 mg/dL (8.4-10.2); Carbon Dioxide 17 mmol/L (22-32); Chloride 107 mmol/L (98-107); Estimated Glomerular Filt Rate > 60 mL/min (>60); Globulin 3.6 g/dL (1.7-4.1); Glucose 107 mg/dL (70-100); HEMOLYSIS < 15 (0-50); Potassium 3.8 mmol/L (3.4-5.1); Sodium 134 mmol/L (137-145); Total Protein 7.3 g/dL (6.3-8.2); Uric Acid 4.6 mg/dL (2.5-6.2)
[2024-07-20 12:56] LABS: Add Manual Diff / Slide Review NO; Basophils Absolute Auto 100 /uL (0-100); Basophils Percent Auto 0.8 % (0-2); Eosinophils Absolute Auto 200 /uL (0-450); Eosinophils Percent Auto 1.1 % (2-4); Hemoglobin 11.8 g/dL (12.0-16.0); Lymphocytes Absolute Auto 2300 /uL (1100-4500); Mean Corpuscular HGB Conc 33.8 % (30-36); Mean Corpuscular Hemoglobin 28.7 PG (26-34); Mean Corpuscular Volume 84.8 fL (80-100); Monocytes Absolute Auto 1000 /uL (0-900); Monocytes Percent Auto 6.8 % (3-14); Neutrophils Absolute Auto 10700 /uL (1500-7000); Neutrophils Percent Auto 75.3 % (50-75); Platelet Count 330 X10^3/uL (150-400); Red Blood Cell Count 4.12 X10^6/uL (4.0-5.2); Red Cell Distribution Width 13.1 % (11.6-14.8); White Blood Cell Count 14.2 X10^3/uL (4.5-11.0)
--- NOTE | 2024-07-20 13:36 | PM.OBTRLD ---
Visit Information Visit Information Date of evaluation: 07/20/24 Primary OB Provider: Hanna Gil Comments/Additional reasons for admission: 29yo at 31+5wks here for rule-out pre-eclampsia. She has had mild to severe range blood pressures at home, with occasional headaches that resolve. She is currently taking 30mg nifedipine, with additional 30mg nifedipine started last night. She brought her blood pressure cuff today, so we can compare to our cuffs. Vital Signs Vital Signs: BP 125/69, 119/65, 130/58, 141/86, 118/60, 111/65 REPLACED BY [facility] Medical History Uterine scar from previous delivery affecting Wears glasses Acne (~2005) Asthma (~2005) Allergies (~1999) PTSD (post-traumatic stress disorder) (~2020) Depression (~2020) Anxiety (~2021) ADHD (~2021) Fractures (~2011) Foot pain (~2015) Chicken pox (~1997) Vertigo (~2009) Painful menstrual periods (~2006) Ovarian cyst (~2017) Kidney stones (~08/16/11) Colon polyps (~07/29/17) Exercise-induced asthma GERD (gastroesophageal reflux disease) Cystic acne History of induced hypertension Normal colonoscopy Surgical History Anesthesia History of endoscopy (~05/17/22) H/O nephrolithotomy with removal of calculi (~06/28/13) History of gastroscopy [place] teeth extracted (~2009) Hx of foot surgery (~02/05/16) H/O left knee surgery (~2011) H/O section (~05/16/19) Family History Grandmother Breast cancer Hypertension Migraine Asthma Family/Other Breast cancer Ovarian cancer Mother Asthma Migraine Brother Depression Anxiety Substance abuse Father Melanoma Grandmother Diabetes mellitus Hypertension Grandfather Heart attack Social History marital status: number of children: 1 household members: spouse and children lives independently: Yes caregiver/support person: Yes housing: house pets and animals: Yes (dog) education level: college (some college) 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[employer]) current occupational exposures/hazards: Yes (occasionally stumbles across contaminated soils) special anay needs: No travel history: recent (domestic only) seatbelt use: always water heater temp set < 120 deg: Yes working smoke detector in home: Yes fire extinguisher in home: Yes carbon monox detector in home: Yes firearms in home: Yes firearms unloaded and locked: Yes do you feel safe at home: Yes Smoking Status: Never smoker second hand exposure: No alcohol intake: former (~1 glass wine/week when not ) substance use type: does not use during the past year weight has: remained stable well-balanced diet: about half the time daily servings fruits/ve-4 caffeine: No Type(s) of exercise: aerobic and other (football) Objective Labs 07/20/24 11:32 07/20/24 11:32 Labs: Laboratory Results - last 24 hr 07/20/24 11:32 WBC 14.2 H RBC 4.12 Hgb 11.8 L Hct 35.0 L MCV 84.8 MCH 28.7 MCHC 33.8 RDW 13.1 Plt Count 330 Neut % (Auto) 75.3 H Lymph % (Auto) 16.0 L [place] % (Auto) 6.8 Eos % (Auto) 1.1 L Baso % (Auto) 0.8 Neut # (Auto) 41062 H Lymph # (Auto) 2300 [place] # (Auto) 1000 H Eos # (Auto) 200 Baso # (Auto) 100 Sodium 134 L Potassium 3.8 Chloride 107 Carbon Dioxide 17 L BUN 10 Creatinine 0.68 Estimated GFR > 60 BUN/Creatinine Ratio 14.7 Glucose 107 H Uric Acid 4.6 Calcium 9.4 Total Bilirubin 0.4 AST 33 ALT 20 Alkaline Phosphatase 130 H Total Protein 7.3 Albumin 3.7 Globulin 3.6 Albumin/Globulin Ratio 1.0 Evaluation Evaluation Baseline heart rate: 140 Variability: Moderate (11-25) monitor accelerations: Present Monitor Decelerations: Absent Category of Tracing: Reactive Diagnosis, Plan/Disposition Final Diagnosis (1) Gestational hypertension: Status: Acute Plan/Disposition Plan: 29yo at 31+5wks presenting for rule-out pre-eclampsia. Normal labwork with urine p:c of 0.05 today. Her blood pressures have been labile at home, normal earlier in the day then elevated at night. Her blood pressure cuff does seem like it is likely too small, so advised that she get a new one that fits her arm circumference better. We also discussed continuing on 60mg nifedipine ER daily. -plan for weekly NSTs with weekly labs -already scheduled for at 37wks -follow-up next week as scheduled OB Disposition: home
[2024-07-20 14:22] LABS: Creatinine Urine Random 178.49 mg/dL; Protein (Total) Urine Random 9 mg/dL (0-12); Protein Creatinine Ratio Urine 0.05 GRAM/24H
== END 2024-07-20 13:24 | disposition home or self-care (01) ==
PROVIDERS: Admitting Provider Student in an Organized Health Care Education/Training Program; PCP Physician Assistant Medical; Referring Provider Student in an Organized Health Care Education/Training Program; Visit Provider Student in an Organized Health Care Education/Training Program
DX: O13.3 Gestational [pregnancy-induced] hypertension without significant proteinuria, third trimester (principal); Z3A.31 31 weeks gestation of pregnancy
CPT/HCPCS: 36415; 59025; 80053; 84112; 84550; 85025; G0378; G0379

== ENCOUNTER 2024-07-24 09:43 | Outpatient (CLI) | payer OTHER, SELFPAY ==
[2024-07-24 10:33] LABS: Add Manual Diff / Slide Review NO; Basophils Absolute Auto 200 /uL (0-100); Basophils Percent Auto 1.4 % (0-2); Eosinophils Absolute Auto 300 /uL (0-450); Eosinophils Percent Auto 2.7 % (2-4); Hematocrit 34.2 % (36-46); Hemoglobin 11.2 g/dL (12.0-16.0); Lymphocytes Absolute Auto 2000 /uL (1100-4500); Mean Corpuscular HGB Conc 32.9 % (30-36); Mean Corpuscular Hemoglobin 28.1 PG (26-34); Mean Corpuscular Volume 85.3 fL (80-100); Monocytes Absolute Auto 1000 /uL (0-900); Monocytes Percent Auto 9.1 % (3-14); Neutrophils Absolute Auto 7600 /uL (1500-7000); Neutrophils Percent Auto 68.8 % (50-75); Platelet Count 297 X10^3/uL (150-400); Red Blood Cell Count 4.01 X10^6/uL (4.0-5.2); Red Cell Distribution Width 13.4 % (11.6-14.8); White Blood Cell Count 11.1 X10^3/uL (4.5-11.0)
[2024-07-24 10:39] LABS: Appearance Urine UA CLEAR; Bilirubin Urine UA NEGATIVE (NEGATIVE); Color Urine UA YELLOW; Glucose Urine UA NEGATIVE (Negative); Ketones Urine UA NEGATIVE (NEGATIVE); Leukocyte Esterase Urine UA NEGATIVE (NEGATIVE); Nitrite Urine UA NEGATIVE (Negative); Occult Blood Urine UA NEGATIVE (Negative); Protein Urine UA NEGATIVE (Negative); Specific Gravity Urine UA 1.015 (1.000-1.035); Urobilinogen Urine UA 0.2 E.U./dL (0.2)
[2024-07-24 10:47] LABS: Bacteria Urine Few (2-10); Culture Indicated Urine Specimen Cultured; RBC Urine None Seen (0-5/HPF); Squamous Epithelial Cell Urine 1-5 /HPF (0-5/HPF); Urine Volume 10mL (spun); WBC Urine 10-30/HPF (0-5/HPF); pH Urine UA 6.5 (4.5-8.0)
[2024-07-24 10:48] LABS: Alanine Aminotransferase 17 IU/L (<35); Albumin 3.6 g/dL (3.5-5.0); Alkaline Phosphatase 123 U/L (38-126); Aspartate Aminotransferase 23 IU/L (14-36); BUN Creatinine Ratio 10.6 (6-22); Bilirubin Total 0.3 mg/dL (0.2-1.3); Blood Urea Nitrogen 7 mg/dL (7-17); Carbon Dioxide 18 mmol/L (22-32); Chloride 107 mmol/L (98-107); Estimated Glomerular Filt Rate > 60 mL/min (>60); Globulin 3.5 g/dL (1.7-4.1); Glucose 106 mg/dL (70-100); HEMOLYSIS < 15 (0-50); Potassium 3.4 mmol/L (3.4-5.1); Sodium 135 mmol/L (137-145); Total Protein 7.1 g/dL (6.3-8.2); Uric Acid 4.5 mg/dL (2.5-6.2)
--- NOTE | 2024-07-24 10:54 | PM.OBTRLD ---
Visit Information Visit Information Date of evaluation: 07/24/24 Primary OB Provider: Hanna Gil Reason for Evaluation: Yes non-stress test Vital Signs Vital Signs: vitals reviewed in [facility], within normal parameters [facility] Medical History Uterine scar from previous delivery affecting Wears glasses Acne (~2005) Asthma (~2005) Allergies (~1999) PTSD (post-traumatic stress disorder) (~2020) Depression (~2020) Anxiety (~2021) ADHD (~2021) Fractures (~2011) Foot pain (~2015) Chicken pox (~1997) Vertigo (~2009) Painful menstrual periods (~2006) Ovarian cyst (~2017) Kidney stones (~08/16/11) Colon polyps (~07/29/17) Exercise-induced asthma GERD (gastroesophageal reflux disease) Cystic acne History of induced hypertension Normal colonoscopy Surgical History Anesthesia History of endoscopy (~05/17/22) H/O nephrolithotomy with removal of calculi (~06/28/13) History of gastroscopy [place] teeth extracted (~2009) Hx of foot surgery (~02/05/16) H/O left knee surgery (~2011) H/O section (~05/16/19) Family History Grandmother Breast cancer Hypertension Migraine Asthma Family/Other Breast cancer Ovarian cancer Mother Asthma Migraine Brother Depression Anxiety Substance abuse Father Melanoma Grandmother Diabetes mellitus Hypertension Grandfather Heart attack Social History marital status: number of children: 1 household members: spouse and children lives independently: Yes caregiver/support person: Yes housing: house pets and animals: Yes (dog) education level: college (some college) 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[employer]) current occupational exposures/hazards: Yes (occasionally stumbles across contaminated soils) special anay needs: No travel history: recent (domestic only) seatbelt use: always water heater temp set < 120 deg: Yes working smoke detector in home: Yes fire extinguisher in home: Yes carbon monox detector in home: Yes firearms in home: Yes firearms unloaded and locked: Yes do you feel safe at home: Yes Smoking Status: Never smoker second hand exposure: No alcohol intake: former (~1 glass wine/week when not ) substance use type: does not use during the past year weight has: remained stable well-balanced diet: about half the time daily servings fruits/ve-4 caffeine: No Type(s) of exercise: aerobic and other (football) Objective Labs 07/24/24 10:13 07/24/24 10:13 Labs: Laboratory Results - last 24 hr 07/24/24 07/24/24 09:50 10:13 WBC 11.1 H RBC 4.01 Hgb 11.2 L Hct 34.2 L MCV 85.3 MCH 28.1 MCHC 32.9 RDW 13.4 Plt Count 297 Neut % (Auto) 68.8 Lymph % (Auto) 18.0 L [place] % (Auto) 9.1 Eos % (Auto) 2.7 Baso % (Auto) 1.4 Neut # (Auto) 7600 H Lymph # (Auto) 2000 [place] # (Auto) 1000 H Eos # (Auto) 300 Baso # (Auto) 200 H Sodium 135 L Potassium 3.4 Chloride 107 Carbon Dioxide 18 L BUN 7 Creatinine 0.66 Estimated GFR > 60 BUN/Creatinine Ratio 10.6 Glucose 106 H Uric Acid 4.5 Calcium 9.0 Total Bilirubin 0.3 AST 23 ALT 17 Alkaline Phosphatase 123 Total Protein 7.1 Albumin 3.6 Globulin 3.5 Albumin/Globulin Ratio 1.0 Urine Color Yellow Urine Appearance Clear Urine pH 6.5 Ur Specific [place] 1.015 Urine Protein Negative Urine Glucose (UA) Negative Urine Ketones Negative Urine Occult Blood Negative Urine Nitrate Negative Urine Bilirubin Negative Urine Urobilinogen 0.2 Ur Leukocyte Esterase Negative Urine RBC None seen Urine WBC 10-30/hpf H Ur Squamous Epith Cells 1-5 /hpf Urine Bacteria Few (2-10) H Ur Culture Indicated? Specimen cultured Vol Urine Centrifuged 10ml (spun) Evaluation Evaluation Baseline heart rate: 140 Variability: Moderate (11-25) monitor accelerations: Present Monitor Decelerations: Absent Category of Tracing: Reactive Diagnosis, Plan/Disposition Final Diagnosis (1) Gestational hypertension: Status: Acute Plan/Disposition Plan: Follow-up in clinic after this NST/labs.
[2024-07-24 11:02] LABS: Creatinine Urine Random 124.14 mg/dL; Protein (Total) Urine Random 7 mg/dL (0-12); Protein Creatinine Ratio Urine 0.05 GRAM/24H
== END 2024-07-24 10:50 | disposition home or self-care (01) ==
LOC: LABOR 10:10 → OB 14:14
PROVIDERS: PCP Physician Assistant Medical; Referring Provider Student in an Organized Health Care Education/Training Program; Visit Provider Student in an Organized Health Care Education/Training Program
DX: O13.3 Gestational [pregnancy-induced] hypertension without significant proteinuria, third trimester (principal); Z3A.32 32 weeks gestation of pregnancy
CPT/HCPCS: 59025; 80053; 81001; 84550; 85025; 87086; G0378; G0379

== ENCOUNTER 2024-07-27 21:43 | Observation (INO) | payer OTHER, SELFPAY ==
[2024-07-27] MEDS: NIFEdipine 30 MG TAB ER 60 MG PO (22:44)
--- NOTE | 2024-07-27 23:45 | P.TNLD_ITS ---
Visit Information Visit Information Date of evaluation: 07/27/24 Primary OB Provider: Hanna Gil On-call OB Provider: Elva Jaime Reason for Evaluation: Yes non-stress test non-stress test reason: decreased movement Vital Signs Vital Signs: Blood pressure 124/70, pulse temperature 37 PFSH Medical History Uterine scar from previous delivery affecting Wears glasses Acne (~2005) Asthma (~2005) Allergies (~1999) PTSD (post-traumatic stress disorder) (~2020) Depression (~2020) Anxiety (~2021) ADHD (~2021) Fractures (~2011) Foot pain (~2015) Chicken pox (~1997) Vertigo (~2009) Painful menstrual periods (~2006) Ovarian cyst (~2017) Kidney stones (~08/16/11) Colon polyps (~07/29/17) Exercise-induced asthma GERD (gastroesophageal reflux disease) Cystic acne History of induced hypertension Normal colonoscopy Surgical History Anesthesia History of endoscopy (~05/17/22) H/O nephrolithotomy with removal of calculi (~06/28/13) History of gastroscopy [place] teeth extracted (~2009) Hx of foot surgery (~02/05/16) H/O left knee surgery (~2011) H/O section (~05/16/19) Family History Grandmother Breast cancer Hypertension Migraine Asthma Family/Other Breast cancer Ovarian cancer Mother Asthma Migraine Brother Depression Anxiety Substance abuse Father Melanoma Grandmother Diabetes mellitus Hypertension Grandfather Heart attack Social History marital status: number of children: 1 household members: spouse and children lives independently: Yes caregiver/support person: Yes housing: house pets and animals: Yes (dog) education level: college (some college) 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[employer]) current occupational exposures/hazards: Yes (occasionally stumbles across contaminated soils) special anay needs: No travel history: recent (domestic only) seatbelt use: always water heater temp set < 120 deg: Yes working smoke detector in home: Yes fire extinguisher in home: Yes carbon monox detector in home: Yes firearms in home: Yes firearms unloaded and locked: Yes do you feel safe at home: Yes Smoking Status: Never smoker second hand exposure: No alcohol intake: former (~1 glass wine/week when not ) substance use type: does not use during the past year weight has: remained stable well-balanced diet: about half the time daily servings fruits/ve-4 caffeine: No Type(s) of exercise: aerobic and other (football) Review of Systems Review of Systems Narrative: Patient was concerned because she was not feeling the baby move despite fluids, sweets, pushing on her abdomen. Patient states she started noticing [place] Daily contractions yesterday every 5 minutes. Eventually she was able to sleep. She states that today she continues to notice contractions and they are getting more uncomfortable in her back. No leakage of fluid. No vaginal bleeding. No other abdominal pain. Exam Narrative Exam Narrative: Abdomen is soft, nontender. Evaluation Evaluation Baseline heart rate: 130 Variability: Moderate (11-25) monitor accelerations: Present Monitor Decelerations: Absent Contraction Frequency (minutes): 5 Uterine Contraction Intensity: Mild Category of Tracing: Reactive Status: Category l Cervical dilation (cm): 0 Cervical effacement (%): 0 station: -4 Diagnosis, Plan/Disposition Final Diagnosis (1) Decreased movement affecting management of mother, antepartum: Status: Acute (2) 32 weeks gestation of : Status: Acute (3) Pelvic cramping in antepartum period: Status: Acute Plan/Disposition Plan: Patient with reactive NST, movement/ breathing/ tone/ normal amniotic fluid on US. Patient c/o cramping, mild by palpation, no cervical change, improved with fluid bolus. OB Disposition: home
[2024-07-27] MEDS: LACTATED RINGERS 500 ML 1000 ML IV (23:48)
[2024-07-28 00:34] VITALS: BP 119/75; PULSE 84; RESP 17; TEMP 37
== END 2024-07-28 00:34 | disposition home or self-care (01) ==
LOC: LABOR 21:46
PROVIDERS: Admitting Provider Student in an Organized Health Care Education/Training Program; PCP Physician Assistant Medical; Referring Provider Student in an Organized Health Care Education/Training Program; Visit Provider Student in an Organized Health Care Education/Training Program
DX: O36.8130 Decreased fetal movements, third trimester, not applicable or unspecified (principal); O47.03 False labor before 37 completed weeks of gestation, third trimester; Z3A.32 32 weeks gestation of pregnancy
CPT/HCPCS: 59025; 59050; 76815; 96360; G0378; G0379

== ENCOUNTER 2024-07-31 09:57 | Outpatient (CLI) | payer OTHER, SELFPAY ==
--- NOTE | 2024-07-31 10:26 | PM.OBTRLD ---
Visit Information Visit Information Date of evaluation: 07/31/24 Primary OB Provider: Hanna Gil Reason for Evaluation: Yes non-stress test Comments/Additional reasons for admission: Celi presents today for NST and weekly labs due to gestational hypertension. Has no new symptoms or concerns today. Vital Signs Vital Signs: BP 132/75, 123/63 [facility] Medical History Uterine scar from previous delivery affecting Wears glasses Acne (~2005) Asthma (~2005) Allergies (~1999) PTSD (post-traumatic stress disorder) (~2020) Depression (~2020) Anxiety (~2021) ADHD (~2021) Fractures (~2011) Foot pain (~2015) Chicken pox (~1997) Vertigo (~2009) Painful menstrual periods (~2006) Ovarian cyst (~2017) Kidney stones (~08/16/11) Colon polyps (~07/29/17) Exercise-induced asthma GERD (gastroesophageal reflux disease) Cystic acne History of induced hypertension Normal colonoscopy Surgical History Anesthesia History of endoscopy (~05/17/22) H/O nephrolithotomy with removal of calculi (~06/28/13) History of gastroscopy [place] teeth extracted (~2009) Hx of foot surgery (~02/05/16) H/O left knee surgery (~2011) H/O section (~05/16/19) Family History Grandmother Breast cancer Hypertension Migraine Asthma Family/Other Breast cancer Ovarian cancer Mother Asthma Migraine Brother Depression Anxiety Substance abuse Father Melanoma Grandmother Diabetes mellitus Hypertension Grandfather Heart attack Social History marital status: number of children: 1 household members: spouse and children lives independently: Yes caregiver/support person: Yes housing: house pets and animals: Yes (dog) education level: college (some college) 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[employer]) current occupational exposures/hazards: Yes (occasionally stumbles across contaminated soils) special anay needs: No travel history: recent (domestic only) seatbelt use: always water heater temp set < 120 deg: Yes working smoke detector in home: Yes fire extinguisher in home: Yes carbon monox detector in home: Yes firearms in home: Yes firearms unloaded and locked: Yes do you feel safe at home: Yes second hand exposure: No alcohol intake: former (~1 glass wine/week when not ) substance use type: does not use during the past year weight has: remained stable well-balanced diet: about half the time daily servings fruits/ve-4 caffeine: No Type(s) of exercise: aerobic and other (football) Objective Labs 07/31/24 10:35 07/31/24 10:35 Evaluation Evaluation Baseline heart rate: 140 Variability: Moderate (11-25) monitor accelerations: Present Monitor Decelerations: Absent Category of Tracing: Reactive Diagnosis, Plan/Disposition Final Diagnosis (1) Gestational hypertension: Status: Acute Plan/Disposition Plan: Reactive NST. Normal preeclampsia lab work today, with urine p:c 0.04. -continue weekly NSTs/labs -follow-up in clinic as scheduled OB Disposition: home
[2024-07-31 10:53] LABS: Add Manual Diff / Slide Review NO; Basophils Absolute Auto 100 /uL (0-100); Basophils Percent Auto 1.1 % (0-2); Eosinophils Absolute Auto 400 /uL (0-450); Eosinophils Percent Auto 3.3 % (2-4); Hematocrit 35.7 % (36-46); Hemoglobin 11.9 g/dL (12.0-16.0); Lymphocytes Absolute Auto 2000 /uL (1100-4500); Mean Corpuscular HGB Conc 33.5 % (30-36); Mean Corpuscular Volume 83.6 fL (80-100); Monocytes Absolute Auto 1000 /uL (0-900); Monocytes Percent Auto 7.6 % (3-14); Neutrophils Absolute Auto 9200 /uL (1500-7000); Platelet Count 315 X10^3/uL (150-400); Red Blood Cell Count 4.27 X10^6/uL (4.0-5.2); Red Cell Distribution Width 13.6 % (11.6-14.8); White Blood Cell Count 12.8 X10^3/uL (4.5-11.0)
[2024-07-31 10:58] LABS: Alanine Aminotransferase 18 IU/L (<35); Albumin 3.7 g/dL (3.5-5.0); Albumin Globulin Ratio 0.9 (1.0-2.8); Alkaline Phosphatase 142 U/L (38-126); Aspartate Aminotransferase 24 IU/L (14-36); Bilirubin Total 0.4 mg/dL (0.2-1.3); Calcium 9.6 mg/dL (8.4-10.2); Carbon Dioxide 18 mmol/L (22-32); Globulin 3.9 g/dL (1.7-4.1); Glucose 101 mg/dL (70-100); HEMOLYSIS < 15 (0-50); Potassium 3.7 mmol/L (3.4-5.1); Sodium 137 mmol/L (137-145); Total Protein 7.6 g/dL (6.3-8.2)
[2024-07-31 11:08] LABS: BUN Creatinine Ratio 11.3 (6-22); Blood Urea Nitrogen 8 mg/dL (7-17); Chloride 109 mmol/L (98-107); Estimated Glomerular Filt Rate > 60 mL/min (>60); Uric Acid 4.8 mg/dL (2.5-6.2)
[2024-07-31 12:02] LABS: Creatinine Urine Random 141.36 mg/dL; Protein (Total) Urine Random 6 mg/dL (0-12); Protein Creatinine Ratio Urine 0.04 GRAM/24H
== END 2024-07-31 10:35 | disposition home or self-care (01) ==
LOC: LABOR 10:23 → OB 08-01 16:51
PROVIDERS: PCP Physician Assistant Medical; Referring Provider Student in an Organized Health Care Education/Training Program; Visit Provider Student in an Organized Health Care Education/Training Program
DX: O13.3 Gestational [pregnancy-induced] hypertension without significant proteinuria, third trimester (principal); Z3A.33 33 weeks gestation of pregnancy
CPT/HCPCS: 59025; 80053; 84550; 85025; G0378; G0379

== ENCOUNTER 2024-08-07 08:32 | Outpatient (CLI) | payer OTHER, SELFPAY ==
--- NOTE | 2024-08-07 09:04 | DI.US.S_ITS ---
PROCEDURE: US OB BIOPHYSICAL PROFILE INDICATIONS: Decreased movement OUTSIDE/PRIOR DATING DATA: Last menstrual period (LMP): 12/03/2023 LMP-based estimated date of delivery (LUCIA): 09/08/2024 First dating scan (date and location): 01/24/2024 Estimated date of delivery (LUCIA) from first dating scan: 09/16/2024 The calculations are made using the ultrasound LUCIA of 09/16/2024 TECHNIQUE: Real-time scanning was performed of the fetus, with image documentation. Biophysical profile was also obtained. Endovaginal scanning: Not performed. COMPARISON: [facility], , OB FOLLOW UP, 07/10/2024, 6:52. FINDINGS: General: A single living intrauterine gestation is present. Presentation: Vertex Placenta: Placental position is left fundal, without previa. Amniotic fluid index: 23.9 cm, normal range is 5-24 cm. Single deepest vertical pocket is 7.4 cm. heart rate: 135 beats per minute. Maternal cervical canal: Not well visualized. Clinically estimated gestational age: 34 weeks 2 days Biophysical profile: Tone: 2 points. Movement: 2 points. Respiration: 2 points. Largest pocket of fluid: 2 points. IMPRESSION: 1. Single live intrauterine at 34 weeks 2 days gestation. 2. Biophysical profile score is 8 of 8. 3. Amniotic fluid index is upper limits of normal at 23.9 cm. Approved by: Franki Mckeon M.D. on 08/07/2024 at 10:29
--- NOTE | 2024-08-07 09:10 | P.TNLD_ITS ---
Visit Information Visit Information Date of evaluation: 08/07/24 Primary OB Provider: Hanna Gil Reason for Evaluation: Yes non-stress test non-stress test reason: hypertension/pre-eclampsia Vital Signs Vital Signs: BPs in OBIX within normal parameters [facility] Medical History Uterine scar from previous delivery affecting Wears glasses Acne (~2005) Asthma (~2005) Allergies (~1999) PTSD (post-traumatic stress disorder) (~2020) Depression (~2020) Anxiety (~2021) ADHD (~2021) Fractures (~2011) Foot pain (~2015) Chicken pox (~1997) Vertigo (~2009) Painful menstrual periods (~2006) Ovarian cyst (~2017) Kidney stones (~08/16/11) Colon polyps (~07/29/17) Exercise-induced asthma GERD (gastroesophageal reflux disease) Cystic acne History of induced hypertension Normal colonoscopy Surgical History Anesthesia History of endoscopy (~05/17/22) H/O nephrolithotomy with removal of calculi (~06/28/13) History of gastroscopy [place] teeth extracted (~2009) Hx of foot surgery (~02/05/16) H/O left knee surgery (~2011) H/O section (~05/16/19) Family History Grandmother Breast cancer Hypertension Migraine Asthma Family/Other Breast cancer Ovarian cancer Mother Asthma Migraine Brother Depression Anxiety Substance abuse Father Melanoma Grandmother Diabetes mellitus Hypertension Grandfather Heart attack Social History marital status: number of children: 1 household members: spouse and children lives independently: Yes caregiver/support person: Yes housing: house pets and animals: Yes (dog) education level: college (some college) 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[employer]) current occupational exposures/hazards: Yes (occasionally stumbles across contaminated soils) special anay needs: No travel history: recent (domestic only) seatbelt use: always water heater temp set < 120 deg: Yes working smoke detector in home: Yes fire extinguisher in home: Yes carbon monox detector in home: Yes firearms in home: Yes firearms unloaded and locked: Yes do you feel safe at home: Yes second hand exposure: No alcohol intake: former (~1 glass wine/week when not ) substance use type: does not use during the past year weight has: remained stable well-balanced diet: about half the time daily servings fruits/ve-4 caffeine: No Type(s) of exercise: aerobic and other (football) Objective Imaging US - abdomen: My impression: BPP 8/8, vtx presentation Labs 08/07/24 08:54 08/07/24 08:54 Labs: urine p:c 0.17 Evaluation Evaluation Baseline heart rate: 140 Variability: Moderate (11-25) monitor accelerations: Present Monitor Decelerations: Absent Category of Tracing: Reactive Diagnosis, Plan/Disposition Final Diagnosis (1) Gestational hypertension: Status: Acute (2) Decreased movement affecting management of mother, antepartum: Status: Acute (3) 34 weeks gestation of : Status: Acute Plan/Disposition OB Disposition: home
[2024-08-07 09:19] LABS: Add Manual Diff / Slide Review NO; Basophils Absolute Auto 0 /uL (0-100); Basophils Percent Auto 0.2 % (0-2); Eosinophils Absolute Auto 500 /uL (0-450); Hemoglobin 11.3 g/dL (12.0-16.0); Lymphocytes Absolute Auto 2100 /uL (1100-4500); Lymphocytes Percent Auto 16.8 % (25-40); Mean Corpuscular HGB Conc 33.3 % (30-36); Mean Corpuscular Hemoglobin 27.8 PG (26-34); Mean Corpuscular Volume 83.5 fL (80-100); Monocytes Absolute Auto 1000 /uL (0-900); Neutrophils Absolute Auto 8700 /uL (1500-7000); Platelet Count 269 X10^3/uL (150-400); Red Blood Cell Count 4.07 X10^6/uL (4.0-5.2); Red Cell Distribution Width 13.5 % (11.6-14.8); White Blood Cell Count 12.2 X10^3/uL (4.5-11.0)
[2024-08-07 09:21] LABS: Alanine Aminotransferase 15 IU/L (<35); Albumin 3.6 g/dL (3.5-5.0); Alkaline Phosphatase 147 U/L (38-126); Aspartate Aminotransferase 22 IU/L (14-36); BUN Creatinine Ratio 9.5 (6-22); Bilirubin Total 0.3 mg/dL (0.2-1.3); Blood Urea Nitrogen 6 mg/dL (7-17); Carbon Dioxide 17 mmol/L (22-32); Chloride 109 mmol/L (98-107); Estimated Glomerular Filt Rate > 60 mL/min (>60); Globulin 3.6 g/dL (1.7-4.1); Glucose 89 mg/dL (70-100); HEMOLYSIS < 15 (0-50); Sodium 135 mmol/L (137-145); Total Protein 7.2 g/dL (6.3-8.2)
[2024-08-07 09:46] LABS: Creatinine Urine Random 69.21 mg/dL; Protein (Total) Urine Random 12 mg/dL (0-12); Protein Creatinine Ratio Urine 0.17 GRAM/24H
== END 2024-08-07 10:06 | disposition home or self-care (01) ==
LOC: LABOR 09:18 → OB 10:46
PROVIDERS: PCP Physician Assistant Medical; Referring Provider Student in an Organized Health Care Education/Training Program; Visit Provider Student in an Organized Health Care Education/Training Program
DX: O13.3 Gestational [pregnancy-induced] hypertension without significant proteinuria, third trimester (principal); O36.8130 Decreased fetal movements, third trimester, not applicable or unspecified; Z3A.34 34 weeks gestation of pregnancy
CPT/HCPCS: 36415; 59025; 76819; 80053; 82570; 84156; 85025; G0378; G0379

== ENCOUNTER 2024-08-14 08:57 | Outpatient (CLI) | payer OTHER, SELFPAY ==
[2024-08-14 10:26] LABS: Add Manual Diff / Slide Review NO; Basophils Absolute Auto 100 /uL (0-100); Basophils Percent Auto 1.3 % (0-2); Eosinophils Absolute Auto 300 /uL (0-450); Eosinophils Percent Auto 2.6 % (2-4); Hematocrit 33.2 % (36-46); Lymphocytes Absolute Auto 2000 /uL (1100-4500); Lymphocytes Percent Auto 17.9 % (25-40); Mean Corpuscular HGB Conc 33.2 % (30-36); Mean Corpuscular Hemoglobin 27.3 PG (26-34); Mean Corpuscular Volume 82.3 fL (80-100); Monocytes Absolute Auto 1100 /uL (0-900); Monocytes Percent Auto 9.7 % (3-14); Neutrophils Absolute Auto 7500 /uL (1500-7000); Neutrophils Percent Auto 68.5 % (50-75); Platelet Count 284 X10^3/uL (150-400); Red Blood Cell Count 4.03 X10^6/uL (4.0-5.2); Red Cell Distribution Width 13.9 % (11.6-14.8)
[2024-08-14 10:40] LABS: Alanine Aminotransferase 16 IU/L (<35); Albumin 3.4 g/dL (3.5-5.0); Alkaline Phosphatase 156 U/L (38-126); Aspartate Aminotransferase 23 IU/L (14-36); BUN Creatinine Ratio 12.5 (6-22); Bilirubin Total 0.3 mg/dL (0.2-1.3); Blood Urea Nitrogen 8 mg/dL (7-17); Calcium 8.7 mg/dL (8.4-10.2); Carbon Dioxide 18 mmol/L (22-32); Chloride 107 mmol/L (98-107); Estimated Glomerular Filt Rate > 60 mL/min (>60); Globulin 3.5 g/dL (1.7-4.1); Glucose 84 mg/dL (70-100); HEMOLYSIS < 15 (0-50); Potassium 3.9 mmol/L (3.4-5.1); Sodium 133 mmol/L (137-145); Total Protein 6.9 g/dL (6.3-8.2); Uric Acid 4.7 mg/dL (2.5-6.2)
--- NOTE | 2024-08-14 10:41 | PM.OBTRLD ---
Visit Information Visit Information Date of evaluation: 08/14/24 Primary OB Provider: Hanna Gil Reason for Evaluation: Yes non-stress test non-stress test reason: hypertension/pre-eclampsia Vital Signs Vital Signs: Vitals reviewed in obix, within normal parameters [facility] Medical History Uterine scar from previous delivery affecting Wears glasses Acne (~2005) Asthma (~2005) Allergies (~1999) PTSD (post-traumatic stress disorder) (~2020) Depression (~2020) Anxiety (~2021) ADHD (~2021) Fractures (~2011) Foot pain (~2015) Chicken pox (~1997) Vertigo (~2009) Painful menstrual periods (~2006) Ovarian cyst (~2017) Kidney stones (~08/16/11) Colon polyps (~07/29/17) Exercise-induced asthma GERD (gastroesophageal reflux disease) Cystic acne History of induced hypertension Normal colonoscopy Surgical History Anesthesia History of endoscopy (~05/17/22) H/O nephrolithotomy with removal of calculi (~06/28/13) History of gastroscopy [place] teeth extracted (~2009) Hx of foot surgery (~02/05/16) H/O left knee surgery (~2011) H/O section (~05/16/19) Family History Grandmother Breast cancer Hypertension Migraine Asthma Family/Other Breast cancer Ovarian cancer Mother Asthma Migraine Brother Depression Anxiety Substance abuse Father Melanoma Grandmother Diabetes mellitus Hypertension Grandfather Heart attack Social History marital status: number of children: 1 household members: spouse and children lives independently: Yes caregiver/support person: Yes housing: house pets and animals: Yes (dog) education level: college (some college) 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[employer]) current occupational exposures/hazards: Yes (occasionally stumbles across contaminated soils) special anay needs: No travel history: recent (domestic only) seatbelt use: always water heater temp set < 120 deg: Yes working smoke detector in home: Yes fire extinguisher in home: Yes carbon monox detector in home: Yes firearms in home: Yes firearms unloaded and locked: Yes do you feel safe at home: Yes second hand exposure: No alcohol intake: former (~1 glass wine/week when not ) substance use type: does not use during the past year weight has: remained stable well-balanced diet: about half the time daily servings fruits/ve-4 caffeine: No Type(s) of exercise: aerobic and other (football) Objective Labs 08/14/24 09:55 08/14/24 09:55 Labs: Laboratory Results - last 24 hr 08/14/24 09:55 WBC 11.0 RBC 4.03 Hgb 11.0 L Hct 33.2 L MCV 82.3 MCH 27.3 MCHC 33.2 RDW 13.9 Plt Count 284 Neut % (Auto) 68.5 Lymph % (Auto) 17.9 L [place] % (Auto) 9.7 Eos % (Auto) 2.6 Baso % (Auto) 1.3 Neut # (Auto) 7500 H Lymph # (Auto) 2000 [place] # (Auto) 1100 H Eos # (Auto) 300 Baso # (Auto) 100 urine p:c 0.07 Evaluation Evaluation Baseline heart rate: 140 Variability: Moderate (11-25) monitor accelerations: Present Monitor Decelerations: Absent Category of Tracing: Reactive Diagnosis, Plan/Disposition Final Diagnosis (1) Gestational hypertension: Status: Acute Plan/Disposition OB Disposition: home
[2024-08-14 10:54] LABS: Creatinine Urine Random 180.67 mg/dL; Protein (Total) Urine Random 14 mg/dL (0-12); Protein Creatinine Ratio Urine 0.07 GRAM/24H
== END 2024-08-14 10:42 | disposition home or self-care (01) ==
LOC: LABOR 10:11 → OB 12:40
PROVIDERS: PCP Physician Assistant Medical; Referring Provider Student in an Organized Health Care Education/Training Program; Visit Provider Student in an Organized Health Care Education/Training Program
DX: O13.3 Gestational [pregnancy-induced] hypertension without significant proteinuria, third trimester (principal); Z3A.35 35 weeks gestation of pregnancy
CPT/HCPCS: 59025; 80053; 84550; 85025; G0378; G0379

== ENCOUNTER → 2024-08-21 08:41 | Outpatient (CLI) | payer OTHER, SELFPAY ==
[2024-08-22 10:45] LABS: Strep Grp B PCR NEG for Grp B Strep
== END ==
PROVIDERS: PCP Physician Assistant Medical; Visit Provider Student in an Organized Health Care Education/Training Program
DX: Z36.85 Encounter for antenatal screening for Streptococcus B (principal)
CPT/HCPCS: 87653

== ENCOUNTER 2024-08-21 09:18 | Outpatient (CLI) | payer OTHER, SELFPAY ==
[2024-08-21 09:48] LABS: Add Manual Diff / Slide Review NO; Basophils Absolute Auto 200 /uL (0-100); Basophils Percent Auto 1.4 % (0-2); Eosinophils Absolute Auto 300 /uL (0-450); Eosinophils Percent Auto 2.3 % (2-4); Hematocrit 35.6 % (36-46); Hemoglobin 11.5 g/dL (12.0-16.0); Lymphocytes Absolute Auto 2000 /uL (1100-4500); Lymphocytes Percent Auto 17.4 % (25-40); Mean Corpuscular HGB Conc 32.4 % (30-36); Mean Corpuscular Hemoglobin 26.8 PG (26-34); Mean Corpuscular Volume 82.7 fL (80-100); Monocytes Absolute Auto 900 /uL (0-900); Monocytes Percent Auto 7.6 % (3-14); Neutrophils Absolute Auto 8300 /uL (1500-7000); Neutrophils Percent Auto 71.3 % (50-75); Platelet Count 300 X10^3/uL (150-400); Red Cell Distribution Width 14.2 % (11.6-14.8); White Blood Cell Count 11.7 X10^3/uL (4.5-11.0)
[2024-08-21 09:56] LABS: Alanine Aminotransferase 19 IU/L (<35); Albumin 3.6 g/dL (3.5-5.0); Alkaline Phosphatase 176 U/L (38-126); Aspartate Aminotransferase 29 IU/L (14-36); BUN Creatinine Ratio 12.1 (6-22); Bilirubin Total 0.4 mg/dL (0.2-1.3); Blood Urea Nitrogen 8 mg/dL (7-17); Calcium 9.1 mg/dL (8.4-10.2); Carbon Dioxide 18 mmol/L (22-32); Chloride 108 mmol/L (98-107); Estimated Glomerular Filt Rate > 60 mL/min (>60); Globulin 3.6 g/dL (1.7-4.1); Glucose 83 mg/dL (70-100); HEMOLYSIS < 15 (0-50); Sodium 133 mmol/L (137-145); Total Protein 7.2 g/dL (6.3-8.2)
[2024-08-21 09:57] LABS: Creatinine Urine Random 114.66 mg/dL; Protein (Total) Urine Random 14 mg/dL (0-12); Protein Creatinine Ratio Urine 0.12 GRAM/24H
== END 2024-08-21 10:39 | disposition home or self-care (01) ==
LOC: LABOR 10:38 → OB 12:14
PROVIDERS: PCP Physician Assistant Medical; Referring Provider Student in an Organized Health Care Education/Training Program; Visit Provider Student in an Organized Health Care Education/Training Program
DX: O47.03 False labor before 37 completed weeks of gestation, third trimester (principal); O13.3 Gestational [pregnancy-induced] hypertension without significant proteinuria, third trimester; Z3A.36 36 weeks gestation of pregnancy
CPT/HCPCS: 36415; 59025; 80053; 84550; 85025; 87653; G0378; G0379

== ENCOUNTER 2024-08-27 05:07 | Inpatient (IN) | payer OTHER, SELFPAY ==
[2024-08-27] VITALS (7 sets, daily range): BP systolic 111–119; BP diastolic 56–77; PULSE 78–92; RESP 16–24; TEMP 36.4–36.7; O2SAT 98–99
[2024-08-27 05:55] LABS: Add Manual Diff / Slide Review NO; Basophils Absolute Auto 100 /uL (0-100); Basophils Percent Auto 1.1 % (0-2); Eosinophils Absolute Auto 400 /uL (0-450); Eosinophils Percent Auto 3.1 % (2-4); Hematocrit 34.1 % (36-46); Hemoglobin 11.2 g/dL (12.0-16.0); Lymphocytes Absolute Auto 2500 /uL (1100-4500); Mean Corpuscular HGB Conc 32.8 % (30-36); Mean Corpuscular Hemoglobin 26.7 PG (26-34); Mean Corpuscular Volume 81.4 fL (80-100); Monocytes Absolute Auto 1100 /uL (0-900); Monocytes Percent Auto 8.5 % (3-14); Neutrophils Absolute Auto 8400 /uL (1500-7000); Neutrophils Percent Auto 67.3 % (50-75); Platelet Count 300 X10^3/uL (150-400); Red Blood Cell Count 4.19 X10^6/uL (4.0-5.2); Red Cell Distribution Width 14.8 % (11.6-14.8); White Blood Cell Count 12.4 X10^3/uL (4.5-11.0)
--- NOTE | 2024-08-27 07:22 | SUR.OPER ---
Supine on padded OR bed, head on pillow, bump to right hip, arms secured on padded arm boards at <90 degrees abduction, legs uncrossed, safety belt at thigh.
[2024-08-27] MEDS: CITRIC ACID/SODIUM CITRATE 15 ML SOLUTION 30 ML PO (07:33)
--- NOTE | 2024-08-27 07:38 | P.HPOB_ITS ---
OB HPI Date/Time Date of admission: 08/27/24 Date Patient Seen: 08/27/24 Time Patient Seen: 07:38 History of Present Condition Chief complaint: INPT C SECTION LUCIA Calculator 2 Estimated Delivery Date Method Current WG Current Estimate 09/16/24 Ultrasound #1 37w 1d Other Estimates 09/08/24 LMP (Certain) 38w 2d : 3 Para: 1 Narrative: 29yo at 37+1wks with gHTN and hx of prior , presenting today for planned repeat . She has no new complaints or concerns today. 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; reports negative carrier screening with G1 gHTN (mild range BPs at home & triage)--> on nifedipine 60mg daily, [ x] weekly PIH labs, [x ] weekly NSTs; [x ] repeat c/s 37wks Hx of --> 36wks, arrest of descent/NRFHT; [x ] op report (PLTCS); scheduled for 08/27 at 37+1wks Hx of pre-e with severe features--> [x ] ASA 162mg; [ x] baseline PIH labs Rubella nonimmune Obesity (pre- BMI 31) Frank Assigned to Louise Indications Indication for induction OB: gestational HTN/pre-eclampsia Operative indications ( section): previous uterine surgery Preadmission Labs Last OB Lab Results: 2 Blood Type O Positive 08/27/24 05:40 Antibody Screen Negative 08/27/24 05:40 Hct 34.1 % (36-46) L 08/27/24 05:40 Hgb 11.2 g/dL (12.0-16.0) L 08/27/24 05:40 Hep Bs Antigen Negative s/c (NEGATIVE) 02/27/24 12:36 Hepatitis C Antibody Negative s/c (NEGATIVE) 02/27/24 12:36 Rubella Antibody 12.2 IU/mL (>15) L 02/27/24 12:36 VZV IgG Antibody Reactive (Non Reactive) 02/27/24 12:36 Glucose 1 Hr 50 gm 120 mg/dL (76-139) 06/11/24 10:48 Group B Strep (PCR) Neg for grp b strep 08/21/24 08:41 Glucose Tolerance Testin hr (negative) -: Chlamydia screen: negative, Gonorrhea screen: negative and Urine: negative -: PAP smear: Normal Genetic Screens: Cell-free DNA: Normal External Labs -: Urine: negative Prior (ies) Past Pregnancies Del. Date GA/Weeks Labor Lgth Wt Sex Route Outcome Anesthesia Place Delv Breastfeed Preg Comp Name 05/02/11 8-10 elective 05/16/19 36.4 16 6 lb 7 oz Male live - [facility] year delivery induced hyper- failure to progress other [place] Delivery Date: 05/02/11 Last Updated by: No Alcazar RN D&C, no complications Delivery Date: 05/16/19 Last Updated by: No Alcazar RN PPROM, spinal failed ->general anesthesia Evaluation Evaluation Baseline heart rate: 130 Variability: Moderate (11-25) monitor accelerations: Present Monitor Decelerations: Absent Category of Tracing: Reactive PFSH Medical History Uterine scar from previous delivery affecting Wears glasses Acne (~2005) Asthma (~2005) Allergies (~1999) PTSD (post-traumatic stress disorder) (~2020) Depression (~2020) Anxiety (~2021) ADHD (~2021) Fractures (~2011) Foot pain (~2015) Chicken pox (~1997) Vertigo (~2009) Painful menstrual periods (~2006) Ovarian cyst (~2017) Kidney stones (~08/16/11) Colon polyps (~07/29/17) Exercise-induced asthma GERD (gastroesophageal reflux disease) Cystic acne History of induced hypertension Normal colonoscopy Surgical History Anesthesia History of endoscopy (~05/17/22) H/O nephrolithotomy with removal of calculi (~06/28/13) History of gastroscopy [place] teeth extracted (~2009) Hx of foot surgery (~02/05/16) H/O left knee surgery (~2011) H/O section (~05/16/19) Family History Grandmother Breast cancer Hypertension Migraine Asthma Family/Other Breast cancer Ovarian cancer Mother Asthma Migraine Brother Depression Anxiety Substance abuse Father Melanoma Grandmother Diabetes mellitus Hypertension Grandfather Heart attack Social History marital status: number of children: 1 household members: spouse and children lives independently: Yes caregiver/support person: Yes housing: house pets and animals: Yes (dog) education level: college (some college) 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[employer]) current occupational exposures/hazards: Yes (occasionally stumbles across contaminated soils) special anay needs: No travel history: recent (domestic only) seatbelt use: always water heater temp set < 120 deg: Yes working smoke detector in home: Yes fire extinguisher in home: Yes carbon monox detector in home: Yes firearms in home: Yes firearms unloaded and locked: Yes do you feel safe at home: Yes Smoking Status: Never smoker second hand exposure: No alcohol intake: former (~1 glass wine/week when not ) substance use type: does not use during the past year weight has: remained stable well-balanced diet: about half the time daily servings fruits/ve-4 caffeine: No Type(s) of exercise: aerobic and other (football) Meds Home Medications and Allergies Home Medications Medication Instructions Recorded Confirmed Type cetirizine 10 mg tablet (All Day 10 mg PO DAILY PRN Allergy Symptoms 01/05/24 08/27/24 History Allergy (cetirizine)) ferrous gluconate 324 mg (38 mg 324 mg PO DAILY 01/05/24 08/27/24 History iron) tablet folic acid 400 mcg tablet 0.4 mg PO DAILY 01/05/24 08/27/24 History omega 4-hov-zsa-fish oil 1,000 mg 1 cap PO DAILY 01/05/24 08/27/24 History (120 mg-180 mg) capsule (Fish Oil) Classic 1 tab PO DAILY 07/28/24 08/27/24 History nifedipine 30 mg tablet,extended 60 mg (2 x 30 mg) PO DAILY #30 tabs 08/21/24 08/27/24 Rx release 24 hr Allergies Allergy/AdvReac Type Severity Reaction Status Date / Time hydromorphone Allergy Severe Anaphylaxis Verified 08/27/24 06:05 apple Allergy Intermediate ITCHING Verified 08/27/24 06:05 banana Allergy Intermediate ITCHING Verified 08/27/24 06:05 grape Allergy Intermediate ITCHING Verified 08/27/24 06:05 biotin AdvReac Intermediate Verified 08/27/24 06:05 cyanocobalamin (vitamin B12) AdvReac Intermediate Cystic Acne Verified 08/27/24 06:05 berries Allergy Intermediate ITCHING Uncoded 08/27/24 06:05 Review of Systems Review of Systems ROS: Yes All systems reviewed with the patient and are negative except as otherwise documented OB Exam Vital signs Blood Pressure: 119/56 Pulse Rate: 89 Respiratory Rate: 16 Temperature: 98.1 F HENMT Head: normal to inspection and normocephalic Eyes General: appearance normal, both eyes and all related structures Resp Effort & Inspection: normal respiratory effort and able to speak in complete sentences Extremities Lower extremity: Yes normal to inspection and edema Laterality: bilateral edema degree: 2+ GI Inspection: normal to inspection Other: gravid, nontender, nondistended Objective Labs 08/27/24 05:40 Labs: Laboratory Results - last 24 hr 08/27/24 05:40 WBC 12.4 H RBC 4.19 Hgb 11.2 L Hct 34.1 L MCV 81.4 MCH 26.7 MCHC 32.8 RDW 14.8 Plt Count 300 Neut % (Auto) 67.3 Lymph % (Auto) 20.0 L [place] % (Auto) 8.5 Eos % (Auto) 3.1 Baso % (Auto) 1.1 Neut # (Auto) 8400 H Lymph # (Auto) 2500 [place] # (Auto) 1100 H Eos # (Auto) 400 Baso # (Auto) 100 Blood Type O Positive Antibody Screen Negative Assessment and Plan Assessment and Plan Assessment and Plan narrative: 29yo at 37+1wks admitted for planned repeat due to hx of prior c- section, and gestational hypertension in this . -CBC, T&S on admission -NST on admission -neuraxial anesthesia -GBS neg; plan 2g Ancef for prophylaxis -PPH risk low -VTE risk low, SCDs with anesthesia -move to OR for delivery once all teams ready counseling: It was explained to the patient that a section is a surgery to deliver the baby through an incision in the abdominal wall and uterus.? All procedures can be associated with risk and unforeseen complications, which can be immediate or delayed.? Risks and complications of section include, but are not limited to:? infection of the uterus, pelvic organs, or skin; inadvertent injury to internal organs such as the bowel, bladder, or possibly even the baby; blood loss, transfusion, and/or life-threatening hemorrhage requiring hysterectomy; blood clots in the legs, pelvic organs, or lungs; adverse reaction to medications or anesthesia during surgery; development of placenta accreta spectrum in a subsequent ; and increased risk of section in a subsequent . Time-Based Coding :: [20min] spent with patient and on the chart (including review of chart, obtaining history, exam, reviewing outside data, placing orders, documenting exam and treatment plan, and counseling patient) on [08/27/24].
[2024-08-27] MEDS: CEFAZOLIN 2 GM/100 ML PREMIX 100 ML IV (07:50)
--- NOTE | 2024-08-27 09:20 | P.OP_ITS ---
Operative Date/Time/Diagnoses Date of procedure: 08/27/24 Time of procedure: 08:00 Pre-op diagnosis: 1. Cintron intrauterine gestation at 37+1 weeks 2. Gestational hypertension 3. History of prior section 4. Obesity 5. History of pre-eclampsia in prior Post-op diagnosis: same (delivered via repeat ) Procedure & Clinicians Procedure: Repeat low transverse section Same procedure as scheduled: Yes Indications: 29yo at 37+1wks admitted for repeat due to gestational hypertension (on 60mg nifedipine daily). Surgeon: Hanna Gil Junior Project Coordinator: Clara Lake Reason for Junior Project Coordinator: Junior Project Coordinator was necessary for timely, efficient, and safe completion of the procedure. Anesthesia Type: Spinal Operative Notes Findings: Normal-appearing uterus and bilateral fallopian tubes and ovaries. Clear fluid noted with AROM. Delivery productive of a viable male in cephalic presentation with APGARs 9/9 and weighing 3276g. Intraoperative meds administered: Duramorph, Ketorolac and Pitocin Estimated Blood Loss (mL): 700 Blood products transfused: none Procedure in detail: The risks, benefits, indications and alternatives of the procedure were reviewed with the patient and informed consent was obtained. The patient was taken to the operating room where spinal anesthesia was obtained without difficulty and was found to be adequate. Sequential compression devices were placed bilaterally for VTE prophylaxis. She was then prepped and draped in the normal, sterile fashion in the dorsal supine position with a leftward tilt. She received 2g Ancef for surgical prophylaxis. A Pfannenstiel skin incision was then made with the scalpel and carried through to the underlying layer of fascia. The fascia was incised in the midline and the incision extended laterally with the Winters scissors. The superior aspect of the incision was grasped, tented up with Ok clamps and the rectus muscles were dissected off bluntly, aided with Winters scissors. The rectus muscles were then at the midline. The peritoneum was identified, and entered digitally. The peritoneal incision was then extended horizontally, superiorly and inferiorly, with good visualization of the bladder. The bladder blade was then inserted. The vesicouterine peritoneum was then identified, grasped with pick-ups, and entered sharply with Metzenbaum scissors. This incision was then extended laterally and the bladder flap was created digitally. The lower uterine segment was incised in a transverse fashion with the scalpel. The uterine incision was then extended manually in a cephalad/caudad direction. The amniotic sac was artificially ruptured, productive of clear fluid. The bladder blade was then removed. The ?s head delivered atraumatically through the hysterotomy without difficulty, followed by the body.? The cord was doubly clamped and cut after a 60sec delay with the infant handed off to the waiting pediatrics team. The placenta was then removed spontaneously with gentle traction on the umbilical cord. The uterus was then exteriorized and cleared of all clots and debris. The uterine incision was repaired with 0-vicryl in a running, locked fashion. Two figure of eight sutures of 0-monocryl were placed along the hysterotomy with excellent hemostasis achieved. The uterus was returned to the abdomen and the hysterotomy was again noted to be hemostatic. The paracolic gutters were cleared of all clot and debris. PerClot hemostatic powder was applied to the incision to aid with hemostasis. The bladder blade was again removed. The fascia was reapproximated with 0-vicryl in a running fashion. The subcutaneous layer was closed with 3-0 vicryl in simple, interrupted sutures. The skin was closed with 4-0 monocryl in a subcuticular fashion. The incision was then dressed with steri-strips and a pressure dressing was applied. At the completion of the case, a Crede maneuver was performed with good uterine tone and minimal vaginal bleeding noted.? The patient tolerated the procedure well. Sponge, lap and needle counts were correct x3. The patient was taken to the recovery room in stable condition. Complications: none [place] Baby 1: Delivery Date: 08/27/24 Delivery Time: Infant Gender: Male Presentation: vertex Placental Delivery Description: Spontaneous Cord Vessel Description: 3 Vessels score (1 min): 9 score (5 min): 9 weight: 7 lb 3.557 oz Post-operative Condition: stable Disposition: PACU Aftercare: routine postop
[2024-08-27] MEDS: LACTATED RINGERS 1,000 ML 125 ML IV (10:00)
[2024-08-27] MEDS: OXYCODONE IR 5 MG TABLET PO ×2 (11:25→12:21)
[2024-08-27] MEDS: KETOROLAC 30 MG/ML VIAL IV ×2 (14:59→21:04)
[2024-08-27] MEDS: ACETAMINOPHEN 325 MG TABLET 650 MG PO ×2 (15:35→21:05)
[2024-08-27] MEDS: OXYCODONE IR 10 MG TABLET PO ×2 (16:18→20:00)
[2024-08-27] MEDS: MORPHINE 2 MG/ML INJ IV ×2 (18:16→22:28)
[2024-08-28] MEDS: OXYCODONE IR 10 MG TABLET PO ×3 (01:37→17:24)
[2024-08-28] MEDS: KETOROLAC 30 MG/ML VIAL IV ×2 (03:02→08:53)
[2024-08-28] MEDS: ACETAMINOPHEN 325 MG TABLET 650 MG PO ×4 (03:02→22:02)
[2024-08-28 06:12] LABS: Add Manual Diff / Slide Review NO; Basophils Absolute Auto 0 /uL (0-100); Basophils Percent Auto 0.2 % (0-2); Eosinophils Absolute Auto 100 /uL (0-450); Eosinophils Percent Auto 0.7 % (2-4); Hematocrit 30.2 % (36-46); Hemoglobin 10.1 g/dL (12.0-16.0); Lymphocytes Absolute Auto 1100 /uL (1100-4500); Lymphocytes Percent Auto 5.4 % (25-40); Mean Corpuscular HGB Conc 33.5 % (30-36); Mean Corpuscular Hemoglobin 27.1 PG (26-34); Mean Corpuscular Volume 80.9 fL (80-100); Monocytes Absolute Auto 1100 /uL (0-900); Monocytes Percent Auto 5.9 % (3-14); Neutrophils Absolute Auto 17100 /uL (1500-7000); Neutrophils Percent Auto 87.8 % (50-75); Platelet Count 277 X10^3/uL (150-400); Red Blood Cell Count 3.73 X10^6/uL (4.0-5.2); Red Cell Distribution Width 14.7 % (11.6-14.8); White Blood Cell Count 19.5 X10^3/uL (4.5-11.0)
[2024-08-28] MEDS: PRENATAL VIT,CALC/IRON/FOLIC 1 TABLET 1 TAB PO (08:53)
[2024-08-28] MEDS: DOCUSATE 100 MG CAPSULE PO (08:53)
[2024-08-28] MEDS: IBUPROFEN 600 MG TABLET PO ×2 (15:56→22:01)
--- NOTE | 2024-08-28 16:38 | PM.OBDS.1 ---
Discharge Providers Provider Date of admission: 08/27/24 05:07 Discharge Date: 08/28/24 Primary care physician: Idania West PA-C Consults: 08/27/24 10:22 Consult to Administrative Library Assistant Routine Comment: Discharge provider: Hanna Gil DO Summary Hospital Course Date Patient Seen: 08/28/24 Time Patient Seen: 16:38 Diagnoses: 1. Cintron intrauterine gestation at 37+1 weeks, delivered via repeat low transverse section 2. Gestational hypertension 3. History of prior section 4. Obesity 5. History of pre-eclampsia in prior Hospital Course: 29yo [id number] admitted at 37+1wks for planned repeat due to gestational hypertension. Her delivery was uncomplicated, and productive of a viable male infant. Her course was unremarkable. On post-op day #1, she was ambulating, tolerating regular diet, voiding spontaneously with minimal lochia. Her pain was well controlled with oral medications, thus she was discharged to home on post-op day #1. Peripartum Data Infant Delivery Method: Section Procedures: External monitoring Neuraxial anesthesia delivery complications: none 1: Gender: Male Disposition of : home Discharge Diagnosis (1) Previous delivery, delivered: Status: Acute (2) Single live : Status: Acute (3) Gestational hypertension: Status: Acute (4) Rubella non-immune status, antepartum: Status: Acute (5) Obesity affecting : Status: Acute (6) 37 weeks gestation of : Status: Acute Status at Discharge Cognitive/behavioral status at discharge: oriented Functional status at discharge: independent ambulation Overall status at discharge: patient is progressing back to baseline Time Spent with Patient Time attestation: Total time spent providing and/or coordinating discharge services: Time spent: Less than 30 minutes Objective Labs 08/28/24 06:00 Labs: Laboratory Results - last 24 hr 08/28/24 06:00 WBC 19.5 H D RBC 3.73 L Hgb 10.1 L Hct 30.2 L MCV 80.9 MCH 27.1 MCHC 33.5 RDW 14.7 Plt Count 277 Neut % (Auto) 87.8 H D Lymph % (Auto) 5.4 L [place] % (Auto) 5.9 Eos % (Auto) 0.7 L Baso % (Auto) 0.2 Neut # (Auto) 45238 H Lymph # (Auto) 1100 [place] # (Auto) 1100 H Eos # (Auto) 100 Baso # (Auto) 0 Exam Vital Signs (past 8 hours): Oxygen Delivery Method Room Air vitals reviewed in OBIX, within normal parameters Const General: cooperative, healthy appearing, comfortable and No acute distress Resp Effort & Inspection: normal respiratory effort and able to speak in complete sentences GI Inspection: normal to inspection Other: fundus firm and nontender at U-2 Skin General: no rashes or lesions noted Other: incision clean/dry/intact with steri-strips in place Neuro General: patient alert and patient awake Extrem General: normal to inspection, no calf tenderness and edema (+1 ) Psych Mood: congruent mood Affect: normal affect Discharge Plan Discharge Plan Patient Disposition: Home Provider Discharge Comment: Take ibuprofen 800mg every 8hrs and acetaminophen 650mg every 6hrs for pain. Take as scheduled to keep a steady-state of pain medication. Use oxycodone 5mg every 4hrs as needed for severe pain. Avoid lifting greater than 20lbs for at least 6 weeks. Avoid placing anything in the vagina for 6 weeks. Discharge orders & Medications Prescriptions: New oxycodone 5 mg Tablet 5 mg PO Q4H PRN (Reason: Pain, Moderate (4-6)) Qty: 14 0RF Continued omega 1-oak-bst-fish oil [Fish Oil] 1,000 mg (120 mg-180 mg) capsule 1 cap PO DAILY folic acid 400 mcg tablet 0.4 mg PO DAILY ferrous gluconate 324 mg (38 mg iron) tablet 324 mg PO DAILY cetirizine [All Day Allergy (cetirizine)] 10 mg tablet 10 mg PO DAILY PRN (Reason: Allergy Symptoms) Classic 1 tab PO DAILY Discontinued nifedipine 30 mg tablet extended release 24hr 60 mg PO DAILY Qty: 30 0RF Follow up/Referrals: Clara Lake MD [Physician] - (Please follow up with on September 03, 2024 at 1:45pm for your one week incision check. ) Hanna Gil DO [Physician] - 10/09/24 (Please follow up with Dr. Gil on October 09 2024 for your six week follow up appointment at 1045 am. ) Diet/Activity/Treatments Diet: Diet as Tolerated Activity: Walking is encouraged as tolerated. Skin/Wound/Dressing Care Skin care: You may shower normally. Report to your healthcare provider any signs of infection, such as:: chills, fever, increased pain, unusual drainage and unusual redness Dressing: Your steri-strips will fall off in about 1 week. Visit Report/Discharge Packet Instructions: DI for , DI for Prescription Opioid Use Stand Alone Forms: Patient Portal/API, Stroke Signs & Symptoms Discharge Data Primary Care Provider: Idania West
[2024-08-28] MEDS: SIMETHICONE 80 MG TABLET PO (20:47)
[2024-08-28] MEDS: OXYCODONE IR 5 MG TABLET PO (22:01)
[2024-08-29] MEDS: OXYCODONE IR 5 MG TABLET PO ×2 (02:30→06:18)
[2024-08-29] MEDS: IBUPROFEN 600 MG TABLET PO (04:17)
[2024-08-29] MEDS: ACETAMINOPHEN 325 MG TABLET 650 MG PO (04:17)
[2024-08-29] MEDS: LANOLIN OINT 7 GM 1 APPLIC TOP (06:18)
[2024-08-29] MEDS: SIMETHICONE 80 MG TABLET PO (06:18)
--- NOTE | 2024-08-29 07:53 | P.DS_ITS ---
Discharge Providers Provider Date of admission: 08/27/24 05:07 Discharge Date: 08/29/24 Primary care physician: Idania West PA-C Consults: 08/27/24 10:22 Consult to Communications Superintendent Routine Comment: Discharge provider: Fartun Benjamin MD Summary Hospital Course Date Patient Seen: 08/29/24 Time Patient Seen: 07:30 Hospital Course: 29yo [id number] admitted at 37+1wks for planned repeat due to gestational hypertension. Her delivery was uncomplicated, and productive of a viable male infant. Her course was unremarkable. On post-op day #1, she was ambulating, tolerating regular diet, voiding spontaneously with minimal lochia. Her pain was well controlled with oral medications however with intermittent exacerbation. She was discharged to home on POD2 meeting all discharge milestones Peripartum Data Delivery Method: Section complications: none [place] 1: Gender: Male Disposition of : home Discharge Diagnosis (1) Previous delivery, delivered: Status: Acute (2) Single live : Status: Acute (3) Gestational hypertension: Status: Acute (4) Rubella non-immune status, antepartum: Status: Acute (5) Obesity affecting : Status: Acute (6) 37 weeks gestation of : Status: Acute Status at Discharge Cognitive/behavioral status at discharge: oriented Functional status at discharge: independent ambulation Overall status at discharge: patient is back to baseline Time Spent with Patient Time attestation: Total time spent providing and/or coordinating discharge services: Time spent: Less than 30 minutes Specific discharge activities: NO heavy lifting >10# for 2 weeks, no more than 15# for 4 weeks thereafter Objective Labs 08/28/24 06:00 Exam Vital Signs (past 8 hours): Oxygen Delivery Method Room Air maternal VS reviewed in OBIX and wnl Const General: cooperative, comfortable and well developed Nutritional Appearance: obese Orientation: alert, awake and oriented x3 Limitations: mental status not altered HENMT Head: normal to inspection Resp Effort & Inspection: normal respiratory effort and able to speak in complete sentences Cardio Pulses: normal peripheral pulses GI Inspection: obesity Palpation: soft Other: pfann incision, steris in place, dry/intact, scant dried sang at R apex without extension mild appropriate postoperative TTP, fundus firm << Umb without tenderness Other: deferred Skin General: no rashes or lesions noted Neuro General: patient alert, patient awake and patient oriented x3 Extrem General: normal to inspection Psych Mental Status: mental status grossly normal Judgment: judgment good Discharge Plan Discharge Plan Patient Disposition: Home Provider Discharge Comment: Take ibuprofen 800mg every 8hrs and acetaminophen 650mg every 6hrs for pain. Take as scheduled to keep a steady-state of pain medication. Use oxycodone 5mg every 4hrs as needed for severe pain. Avoid lifting greater than 20lbs for at least 6 weeks. Avoid placing anything in the vagina for 6 weeks. Nursing Discharge Comment: You can take Ibuprofen at 0100am next, and Tylenol at 10pm. Discharge orders & Medications Prescriptions: New oxycodone 5 mg Tablet 5 mg PO Q4H PRN (Reason: Pain, Moderate (4-6)) Qty: 14 0RF Continued omega 4-dgd-ann-fish oil [Fish Oil] 1,000 mg (120 mg-180 mg) capsule 1 cap PO DAILY folic acid 400 mcg tablet 0.4 mg PO DAILY ferrous gluconate 324 mg (38 mg iron) tablet 324 mg PO DAILY cetirizine [All Day Allergy (cetirizine)] 10 mg tablet 10 mg PO DAILY PRN (Reason: Allergy Symptoms) Classic 1 tab PO DAILY Discontinued nifedipine 30 mg tablet extended release 24hr 60 mg PO DAILY Qty: 30 0RF Follow up/Referrals: Calra Lake MD [Physician] - (Please follow up with on September 03, 2024 at 1:45pm for your one week incision check. ) Hanna Gil DO [Physician] - 10/09/24 (Please follow up with Dr. Gil on October 09 2024 for your six week follow up appointment at 1045 am. ) Diet/Activity/Treatments Diet: Diet as Tolerated Activity: Walking is encouraged as tolerated. Skin/Wound/Dressing Care Skin care: You may shower normally. Report to your healthcare provider any signs of infection, such as:: chills, fever, increased pain, unusual drainage and unusual redness Dressing: Your steri-strips will fall off in about 1 week. Visit Report/Discharge Packet Instructions: DI for , DI for Prescription Opioid Use Stand Alone Forms: Patient Portal/API, Stroke Signs & Symptoms Discharge Data Primary Care Provider: Idanai West
== END 2024-08-29 09:15 | disposition home or self-care (01) | DRG 788 ==
PROVIDERS: Admitting Provider Student in an Organized Health Care Education/Training Program; PCP Physician Assistant Medical; Referring Provider Student in an Organized Health Care Education/Training Program; Visit Provider Student in an Organized Health Care Education/Training Program
PROC: 10D00Z1 Extraction of Products of Conception, Low, Open Approach (ICD-10-PCS; CPT 59514; principal; 2024-08-27 07:45)
DX: O13.4 Gestational [pregnancy-induced] hypertension without significant proteinuria, complicating childbirth (principal); Z3A.37 37 weeks gestation of pregnancy; Z37.0 Single live birth; O99.214 Obesity complicating childbirth
CPT/HCPCS: 36415; 59050; 59510; 59514; 85025; 86850; 86900; 86901; J0690; J1885; J2270; J2405; J2590; J2765